=== PATIENT | female | born 1945 | race Caucasian/White ===

== ENCOUNTER → 2017-11-30 13:48 | Outpatient (CLI) | payer MEDICARE, SELFPAY ==
[2017-11-30 17:52] LABS: Anion Gap 10 (5-15); BUN 21 mg/dL (7-18); BUN/Creat Ratio 14.7 RATIO (10-20); Calcium,Total 8.8 mg/dL (8.5-10.1); Chloride 107 mmol/L (98-107); Creatinine, Serum 1.43 mg/dL (0.55-1.02); EST Glomerular Filtration Rate 39 mL/min (>60); Est Glom Filt Rate - Afr Amer 47 mL/min (>60); Glucose 141 mg/dL (74-106); Sodium Level 141 mmol/L (136-145)
== END ==
PROVIDERS: Family Provider Family Medicine; PCP Family Medicine; Visit Provider Family Medicine
DX: E11.9 Type 2 diabetes mellitus without complications (principal)
CPT/HCPCS: 36415; 80048

== ENCOUNTER → 2017-12-31 21:20 | Outpatient (CLI) | payer MEDICARE, SELFPAY | PROVIDERS: Family Provider Family Medicine; PCP Family Medicine; Visit Provider Urology | DX: R82.99 Other abnormal findings in urine (principal) | CPT/HCPCS: 87086; 87088 ==

== ENCOUNTER → 2018-03-18 10:21 | Outpatient (CLI) | payer MEDICARE, SELFPAY ==
--- NOTE | 2018-03-18 10:21 | DT_ITS ---
This patient was seen during an EMR downtime March 18, 2018 - March 25, 2018. This patient may have a combination of paper and electronic documentation or all paper documentation. All documentation is viewable within the e-chart portion of [facility] for each patient visit.
[2018-03-24 09:33] LABS: BUN 20 mg/dL (7-18); BUN/Creat Ratio 12.7 RATIO (10-20); Calcium,Total 8.1 mg/dL (8.5-10.1); Cholesterol 138 mg/dL (200); Creatinine, Serum 1.57 mg/dL (0.55-1.02); EST Glomerular Filtration Rate 35 mL/min (>60); Est Glom Filt Rate - Afr Amer 42 mL/min (>60); Glucose 161 mg/dL (74-106)
[2018-03-24 09:34] LABS: Anion Gap 12 (5-15); Chloride 107 mmol/L (98-107); Potassium 4.3 mmol/L (3.5-5.1); Sodium Level 141 mmol/L (136-145); Triglycerides 112 mg/dL; Very Low Density Lipoprotein 22 mg/dL (5-40)
[2018-03-24 09:35] LABS: High Density Lipoprotein 44 mg/dL
== END ==
PROVIDERS: Family Provider Family Medicine; PCP Family Medicine; Visit Provider Family Medicine
DX: E11.9 Type 2 diabetes mellitus without complications (principal); R35.0 Frequency of micturition
CPT/HCPCS: 36415; 80048; 80061

== ENCOUNTER → 2018-05-06 11:52 | Outpatient (CLI) | payer MEDICARE, SELFPAY ==
[2018-05-06 16:03] LABS: Anion Gap 9 (5-15); BUN 29 mg/dL (7-18); BUN/Creat Ratio 16.1 RATIO (10-20); Calcium,Total 8.8 mg/dL (8.5-10.1); Chloride 109 mmol/L (98-107); EST Glomerular Filtration Rate 30 mL/min (>60); Est Glom Filt Rate - Afr Amer 36 mL/min (>60); Glucose 226 mg/dL (74-106); Potassium 4.3 mmol/L (3.5-5.1); Sodium Level 143 mmol/L (136-145)
== END ==
PROVIDERS: Family Provider Family Medicine; PCP Family Medicine; Visit Provider Family Medicine
DX: I10 Essential (primary) hypertension (principal)
CPT/HCPCS: 36415; 80048

== ENCOUNTER → 2018-06-10 11:26 | Outpatient (CLI) | payer MEDICARE, SELFPAY ==
[2018-06-10 14:05] LABS: Anion Gap 12 (5-15); BUN 31 mg/dL (7-18); BUN/Creat Ratio 16.8 RATIO (10-20); Calcium,Total 8.7 mg/dL (8.5-10.1); Chloride 110 mmol/L (98-107); Creatinine, Serum 1.85 mg/dL (0.55-1.02); EST Glomerular Filtration Rate 29 mL/min (>60); Est Glom Filt Rate - Afr Amer 35 mL/min (>60); Glucose 190 mg/dL (74-106); Potassium 4.4 mmol/L (3.5-5.1); Sodium Level 142 mmol/L (136-145)
== END ==
PROVIDERS: Family Provider Family Medicine; PCP Family Medicine; Visit Provider Family Medicine
DX: N28.9 Disorder of kidney and ureter, unspecified (principal)
CPT/HCPCS: 36415; 80048

== ENCOUNTER → 2018-08-28 07:55 | Outpatient (CLI) | payer MEDICARE, SELFPAY ==
--- NOTE | 2018-08-28 08:00 | BI_ITS ---
MAMMOGRAPHY - BILATERAL SCREENING REASON FOR EXAM: Female, 73 years old. Routine annual screening examination. PERTINENT HISTORY: Personal history of breast cancer. Prior right mastectomy with TRAM flap reconstruction. TECHNIQUE: Digital bilateral breast abel (3D mammographic acquisition) in the CC and MLO projections. 2-D mediolateral oblique (MLO) and craniocaudad (CC) views of both breasts were obtained. CAD: Full Field Digital Mammography with Computer Added Detection was performed. COMPARISON: Comparison is made with prior examination dated August 02, 2017 and July 20, 2016. FINDINGS: Breast Composition: The left breast is heterogeneously dense, which may obscure small masses. The right breast is fatty in nature. There are no dominant masses or suspicious calcifications. No other significant abnormalities are identified. There has been no significant change since the prior study. BI/SCREENING MAMM (CAD), BILAT IMPRESSION: Stable bilateral screening mammogram. Yearly follow-up mammogram recommended. (A) ASSESSMENT CATEGORY: BIRADS Category 1: Negative. A letter regarding these results will be sent to the patient by the facility within 30 days. Approximately 10% of breast cancers are not detected by mammography. A normal mammogram should not delay biopsy of a clinically suspicious abnormality. [id number] Electronically Signed: Petey Santiago MD at 9:49 EST Tel [phone], Service support ,
== END ==
PROVIDERS: Family Provider Family Medicine; PCP Family Medicine; Visit Provider Family Medicine
DX: Z12.31 Encounter for screening mammogram for malignant neoplasm of breast (principal)
CPT/HCPCS: 77063; 77067

== ENCOUNTER → 2018-09-02 13:30 | Outpatient (CLI) | payer MEDICARE, SELFPAY | PROVIDERS: Family Provider Family Medicine; PCP Family Medicine; Referring Provider Nurse Practitioner Adult Health; Visit Provider Nurse Practitioner Adult Health | DX: R31.9 Hematuria, unspecified (principal) | CPT/HCPCS: 87077; 87086; 87088; 87186 ==

== ENCOUNTER → 2018-09-17 10:43 | Outpatient (CLI) | payer MEDICARE, SELFPAY ==
[2018-09-17 13:11] LABS: Anion Gap 11 (5-15); BUN 36 mg/dL (7-18); BUN/Creat Ratio 24.3 RATIO (10-20); Calcium,Total 8.9 mg/dL (8.5-10.1); Chloride 108 mmol/L (98-107); Cholesterol 148 mg/dL (200); Creatinine, Serum 1.48 mg/dL (0.55-1.02); EST Glomerular Filtration Rate 37 mL/min (>60); Est Glom Filt Rate - Afr Amer 45 mL/min (>60); Glucose 264 mg/dL (74-106); High Density Lipoprotein 49 mg/dL; Potassium 4.6 mmol/L (3.5-5.1); Sodium Level 140 mmol/L (136-145); Thyroid Stim Hormone (TSH) 1.59 uIU/mL (0.358-3.74); Triglycerides 101 mg/dL; Very Low Density Lipoprotein 20 mg/dL (5-40)
== END ==
PROVIDERS: Family Provider Family Medicine; PCP Family Medicine; Visit Provider Family Medicine
DX: E11.9 Type 2 diabetes mellitus without complications (principal)
CPT/HCPCS: 36415; 80048; 80061; 84443

== ENCOUNTER → 2018-10-03 16:26 | Outpatient (CLI) | payer MEDICARE, SELFPAY | PROVIDERS: Family Provider Family Medicine; PCP Family Medicine; Referring Provider Nurse Practitioner Adult Health; Visit Provider Nurse Practitioner Adult Health | DX: R30.0 Dysuria (principal); R82.998 Other abnormal findings in urine | CPT/HCPCS: 87077; 87086; 87088; 87186 ==

== ENCOUNTER → 2019-02-26 14:26 | Outpatient (CLI) | payer MEDICARE, SELFPAY ==
[2019-02-26 17:45] LABS: Anion Gap 9 (5-15); BUN 29 mg/dL (7-18); BUN/Creat Ratio 15.2 RATIO (10-20); Calcium,Total 8.1 mg/dL (8.5-10.1); Chloride 107 mmol/L (98-107); Creatinine, Serum 1.91 mg/dL (0.55-1.02); EST Glomerular Filtration Rate 28 mL/min (>60); Est Glom Filt Rate - Afr Amer 33 mL/min (>60); Glucose 304 mg/dL (74-106); Potassium 5.1 mmol/L (3.5-5.1); Sodium Level 140 mmol/L (136-145)
== END ==
PROVIDERS: Family Provider Family Medicine; PCP Family Medicine; Referring Provider Family Medicine; Visit Provider Family Medicine
DX: I10 Essential (primary) hypertension (principal)
CPT/HCPCS: 36415; 80048

== ENCOUNTER → 2019-04-29 10:02 | Outpatient (CLI) | payer MEDICARE, SELFPAY ==
--- NOTE | 2019-04-29 10:07 | RAD_ITS ---
STUDY: X-RAY CHEST REASON FOR EXAM: Female, 73 years old. Cough. TECHNIQUE: PA and lateral views of the chest. COMPARISON: None. FINDINGS: Hyperinflation. Focal irregular infiltrate in the right upper lobe. Radiographic follow-up is recommended. Findings suggestive of a left basilar scarring. Blunting of the right costophrenic angle. Normal size heart. Normal mediastinum and yaneth. Normal visualized pulmonary arteries. Normal visualized aortic arch and descending thoracic aorta. There are diffuse degenerative changes of the visualized thoracic spine. Normal visualized ribs, clavicles, and shoulders. There is no demonstrated abnormality of the visualized soft tissue structures of the upper abdomen. RAD/Chest PA and Lateral IMPRESSION: Focal right upper lobe infiltrate. Radiographic follow-up is recommended. Electronically Signed: Petey Santiago, at 14:45 EDT , Service support ,
[2019-04-29 10:51] LABS: Bacteria 0 SEEN /hpf (None Seen); Mucous, Urine 0 SEEN /hpf (<or=2+)
[2019-04-29 12:33] LABS: Erythrocyte Sedimentation Rate 62 mm/hr (0-30)
[2019-04-29 12:35] LABS: Absolute Lymphocyte Count 1.53 X10^3/uL (0.83-4.51); Absolute Neutrophil Count 8.8 X10^3/uL (2.0-7.7); Basophil% 0.9 % (0-1); Eosinophil# 0.23 X10^3/uL; Hematocrit 36.3 % (37-47); Hemoglobin 11.6 g/dL (12.0-15.0); Lymphocyte # 1.53 X10^3/ul (4.0); Lymphocyte % 13.3 % (19-41); Mean Corpuscular Hgb 27.8 pg (27.0-32.0); Mean Corpuscular Volume 87.1 fL (81-99); Mean Platelet Vol. 9.9 fl (6.2-12.0); Monocyte# 0.65 X10^3/uL; Monocyte% 5.6 % (0-10); NRBC Flagged by Analyzer 0 % (0-5); Neutrophil # 8.84 X10^3/uL (2.7-7.7); Neutrophil % 76.6 % (47-70); Platelet Count 403 K/mm3 (150-450); RBC Distribution Width CV 13.2 % (11.6-14.6); RBC Distribution Width SD 41.9 fl (35.1-43.9); Red Blood Count 4.17 M/mm3 (4.2-5.4); White Blood Count 11.5 K/mm3 (4.4-11.0)
[2019-04-29 12:46] LABS: Vitamin B12 346 pg/mL (211-911); Vitamin D,25 Hydroxy 31.8 ng/mL (29.95-100.01)
[2019-04-29 13:16] LABS: Color, Urine Yellow (Yellow); Glucose, Dipstick Normal (Normal); Ketone-Dipstick Negative (Negative); Leukocyte Esterase-Dipstick 25 /ul (Negative); Nitrite-Dipstick Negative (Negative); Occult Blood-Urine 50 /ul (Negative); Protein-Dipstick Negative (Negative); Urine Bilirubin Dipstick Negative (Negative); Urine Clarity Cloudy (Clear); Urine Urobilinogen Normal (Normal)
[2019-04-29 13:18] LABS: ALB/GLOB Ratio 0.6 RATIO (0.9-2.4); AST(SGOT) 26 U/L (15-37); Alanine Aminotransfer ALT/SGPT 19 U/L (13-56); Albumin, Serum 3.2 g/dL (3.2-5.0); Alkaline Phosphatase 82 U/L (45-117); Anion Gap 8 (5-15); BUN 31 mg/dL (7-18); BUN/Creat Ratio 14.9 RATIO (10-20); Calcium,Total 8.9 mg/dL (8.5-10.1); Chloride 107 mmol/L (98-107); Creatinine, Serum 2.08 mg/dL (0.55-1.02); EST Glomerular Filtration Rate 25 mL/min (>60); Est Glom Filt Rate - Afr Amer 30 mL/min (>60); Globulin 5.5 g/dL (2.2-4.2); Glucose 168 mg/dL (74-106); Iron 44 ug/dL (50-170); Potassium 4.5 mmol/L (3.5-5.1); Protein, Total 8.7 g/dL (6.4-8.2); Sodium Level 137 mmol/L (136-145); Thyroid Stim Hormone (TSH) 1.19 uIU/mL (0.358-3.74)
[2019-04-29 13:23] LABS: Red Blood Cells-Urine 0-5 SEEN /hpf (0-5); White Blood Cells 0-5 SEEN /hpf (0-5)
[2019-04-29 13:24] LABS: Squamous Epithelial Cells - UA 0-5 SEEN /hpf (5-10)
[2019-04-29 13:37] LABS: D-Dimer Quantitative (DVT/PE) 5.18 FEU/ug/m (0.27-0.49)
== END ==
PROVIDERS: Family Provider Family Medicine; PCP Family Medicine; Referring Provider Family Medicine; Visit Provider Family Medicine
DX: R05 Cough (principal); R31.9 Hematuria, unspecified; E03.9 Hypothyroidism, unspecified; E11.9 Type 2 diabetes mellitus without complications; R07.9 Chest pain, unspecified; R53.83 Other fatigue
CPT/HCPCS: 71046; 80053; 81001; 82306; 82607; 83540; 84443; 85025; 85379; 85652; 87086; 87088

== ENCOUNTER → 2019-04-29 14:47 | Outpatient (CLI) | payer MEDICARE, SELFPAY ==
--- NOTE | 2019-04-29 15:32 | NM_ITS ---
We are attempting to reach an attending provider to discuss findings. An addendum with communication details will be sent when the communication is complete. CLINICAL: 73-year-old female with reported history of shortness of breath. VENTILATION-PERFUSION LUNG SCINTIGRAPHY COMPARISON: Plain film chest radiograph 04/29/2019 FINDINGS: The patient was administered 50.0 mCi 99m Tc DTPA aerosol. The aerosol ventilation study demonstrates mildly nonuniform ventilation identified in the right and left lung art with corresponding radiographic changes defined in the right upper lung on review of plain film chest x-ray 04/29/2019. Central clumping of the aerosol is identified in the bilateral hemithorax. Following the intravenous administration of 5.8 mCi of 99m Tc MAA, the pulmonary perfusion study reveals absent perfusion in the distribution of the right upper lobe to include the apical, anterior and posterior segments clearly delineated on the anterior, posterior projections. Relatively normal perfusion is noted in the left lung. NM/Lung Scan Vent/Perf IMPRESSION: 1. HIGH PROBABILITY FOR PULMONARY EMBOLUS (> 80%) 99m Tc DTPA aerosol ventilation / 99m Tc MAA pulmonary perfusion imaging examination, according to PIOPED II interpretive criteria with regard given to the presence of a > 2 segmental equivalents ventilation-perfusion mismatch involving the right upper lung field-right upper lobe. (Sotsman et al, Radiology 246: 941, 2008 Sotsman et al, J Nucl Med 49: 1741, 2008). 2. Central clumping of aerosol may be secondary to obstructive airway mechanics and/or clinical tachypnea. Electronically Signed: Thomas Erazo DO at 16:49 EDT Tel , Service support ,
== END ==
PROVIDERS: Family Provider Family Medicine; PCP Family Medicine; Referring Provider Family Medicine; Visit Provider Family Medicine
DX: R06.00 Dyspnea, unspecified (principal); R05 Cough; R31.9 Hematuria, unspecified; E03.9 Hypothyroidism, unspecified; E11.9 Type 2 diabetes mellitus without complications; R07.9 Chest pain, unspecified; R53.83 Other fatigue
CPT/HCPCS: 71046; 78582; 80053; 81001; 82306; 82607; 83540; 84443; 85025; 85379; 85652; 87086; A9540; A9567

== ENCOUNTER → 2019-05-08 11:34 | Outpatient (CLI) | payer MEDICARE, SELFPAY ==
[2019-05-08 14:31] LABS: Anion Gap 11 (5-15); BUN 40 mg/dL (7-18); BUN/Creat Ratio 15.8 RATIO (10-20); Calcium,Total 8.8 mg/dL (8.5-10.1); Chloride 103 mmol/L (98-107); Creatinine, Serum 2.53 mg/dL (0.55-1.02); EST Glomerular Filtration Rate 20 mL/min (>60); Est Glom Filt Rate - Afr Amer 24 mL/min (>60); Glucose 232 mg/dL (74-106); Potassium 5.2 mmol/L (3.5-5.1); Sodium Level 139 mmol/L (136-145)
== END ==
PROVIDERS: Family Provider Family Medicine; PCP Family Medicine; Referring Provider Family Medicine; Visit Provider Family Medicine
DX: N28.9 Disorder of kidney and ureter, unspecified (principal)
CPT/HCPCS: 36415; 80048

== ENCOUNTER → 2019-05-13 12:47 | Outpatient (CLI) | payer MEDICARE, SELFPAY ==
--- NOTE | 2019-05-13 12:54 | ECHOD_ITS ---
Reason For Study: PULMONARY EMBOLISM Procedure This was a 2D Doppler, Color Flow transthoracic echocardiogram. Myocardial strain analysis was performed in this exam to aid in the assessment of cardiac function. The exam was of adequate technical quality. Exam performed in department. Left Ventricle Normal LV size. Mild concentric left ventricular hypertrophy. Left ventricular systolic function is normal. The estimated ejection fraction is 70 %. The global longitudinal strain = -19 % (normal). There is evidence of diastolic dysfunction. No regional wall motion abnormalities noted. Right Ventricle Normal RV size. Normal systolic function. Atria Normal left atrium. Normal right atrium. No doppler evidence for ASD. Mitral Valve There is mild to moderate mitral annular calcification. Extension of the mitral annular calcification onto the posterior mitral valve leaflet. Trivial mitral valve insufficiency. Tricuspid Valve Normal tricuspid valve. Mild tricuspid valve insufficiency. Right ventricular systolic pressure estimated to be 35 mmHg. Aortic Valve Trisinus/trileaflet aortic valve. Normal aortic valve. Pulmonic Valve The pulmonic valve is not well visualized. Great Vessels Normal sized aortic root. Pericardium/Pleural No pericardial effusion. MMode/2D Measurements & Calculations LVIDd: 3.5 cm IVSd: 1.3 cm Ao root diam: 3.1 cm LVIDs: 2.3 cm LVPWd: 1.3 cm RVDd: 3.0 cm FS: 35.9 % LAV(MOD-bp): 34.3 ml LVAd ap4: 23.2 cm2 SV(MOD-sp4): 43.5 ml LAV(MOD-bp) Indexed: 16.6 ml/m2 EDV(MOD-sp4): 64.7 ml LAV(MOD-sp2): 32.0 ml EDV(sp4-el): 65.3 ml LAV(MOD-sp4): 35.6 ml LVAs ap4: 12.6 cm2 ESV(MOD-sp4): 21.2 ml ESV(sp4-el): 22.2 ml EF(MOD-sp4): 67.3 % EF(sp4-el): 66.0 % SV(sp4-el): 43.1 ml LA A4 area: 13.6 cm2 LA dimension(2D): 3.6 cm RA A4 area: 11.0 cm2 Time Measurements MV dec time: 0.30 sec Doppler Measurements & Calculations MV E max jeanmarie: 83.3 cm/sec Lat Peak E' Jeanmarie: 5.1 cm/sec Med Peak E' Jeanmarie: 6.5 cm/sec MV A max jeanmarie: 106.6 cm/sec E/E' lat: 16.5 E/E' med: 12.9 MV E/A: 0.78 Ao V2 max: 145.1 cm/sec LV V1 max: 103.9 cm/sec PA V2 max: 118.5 cm/sec Ao max P.4 mmHg LV V1 max P.3 mmHg TR max jeanmarie: 283.4 cm/sec TR max P.1 mmHg Interpretation Summary Left ventricular systolic function is normal. The estimated ejection fraction is 70 %. The global longitudinal strain = -19 % (normal). Mild concentric left ventricular hypertrophy. There is mild to moderate mitral annular calcification. Extension of the mitral annular calcification onto the posterior mitral valve leaflet. Trivial mitral valve insufficiency. Mild tricuspid valve insufficiency. Right ventricular systolic pressure estimated to be 35 mmHg. There is evidence of diastolic dysfunction. Ordering Physician: Deshawn Vides Referring Physician: Deshawn Vides Performed By: Sintia Miller RDCS
== END ==
PROVIDERS: Family Provider Family Medicine; PCP Family Medicine; Referring Provider Family Medicine; Visit Provider Family Medicine
DX: I26.99 Other pulmonary embolism without acute cor pulmonale (principal)
CPT/HCPCS: 93306

== ENCOUNTER → 2019-05-27 13:10 | Outpatient (CLI) | payer MEDICARE, SELFPAY ==
[2019-05-27 15:42] LABS: Anion Gap 7 (5-15); BUN 27 mg/dL (7-18); Calcium,Total 8.8 mg/dL (8.5-10.1); Chloride 109 mmol/L (98-107); EST Glomerular Filtration Rate 36 mL/min (>60); Est Glom Filt Rate - Afr Amer 44 mL/min (>60); Glucose 175 mg/dL (74-106); Potassium 4.6 mmol/L (3.5-5.1); Sodium Level 139 mmol/L (136-145)
== END ==
PROVIDERS: Family Provider Family Medicine; PCP Family Medicine; Referring Provider Family Medicine; Visit Provider Family Medicine
DX: N28.9 Disorder of kidney and ureter, unspecified (principal)
CPT/HCPCS: 36415; 80048

== ENCOUNTER → 2019-06-02 10:45 | Outpatient (CLI) | payer MEDICARE, SELFPAY ==
[2019-06-02 12:31] LABS: Anion Gap 8 (5-15); BUN 26 mg/dL (7-18); BUN/Creat Ratio 16.2 RATIO (10-20); Calcium,Total 9.1 mg/dL (8.5-10.1); Chloride 110 mmol/L (98-107); EST Glomerular Filtration Rate 34 mL/min (>60); Est Glom Filt Rate - Afr Amer 41 mL/min (>60); Glucose 182 mg/dL (74-106); Potassium 4.5 mmol/L (3.5-5.1); Sodium Level 141 mmol/L (136-145)
== END ==
PROVIDERS: Family Provider Family Medicine; PCP Family Medicine; Referring Provider Family Medicine; Visit Provider Family Medicine
DX: N28.9 Disorder of kidney and ureter, unspecified (principal)
CPT/HCPCS: 36415; 80048

== ENCOUNTER → 2019-08-05 11:52 | Outpatient (CLI) | payer MEDICARE, SELFPAY ==
[2019-08-05 15:55] LABS: Anion Gap 7 (5-15); BUN 32 mg/dL (7-18); BUN/Creat Ratio 16.8 RATIO (10-20); Calcium,Total 8.5 mg/dL (8.5-10.1); Chloride 108 mmol/L (98-107); Creatinine, Serum 1.91 mg/dL (0.55-1.02); EST Glomerular Filtration Rate 27 mL/min (>60); Est Glom Filt Rate - Afr Amer 33 mL/min (>60); Glucose 227 mg/dL (74-106); Potassium 4.7 mmol/L (3.5-5.1); Sodium Level 139 mmol/L (136-145)
== END ==
PROVIDERS: Family Provider Family Medicine; PCP Family Medicine; Referring Provider Family Medicine; Visit Provider Family Medicine
DX: N28.9 Disorder of kidney and ureter, unspecified (principal)
CPT/HCPCS: 36415; 80048

== ENCOUNTER → 2019-09-08 12:18 | Outpatient (CLI) | payer MEDICARE, SELFPAY ==
--- NOTE | 2019-09-08 12:20 | BI_ITS ---
MAMMOGRAPHY - BILATERAL SCREENING 3-D TOMOSYNTHESIS REASON FOR EXAM: Female, 74 years old. Routine annual screening examination. PERTINENT HISTORY: Personal history of breast cancer status post right mastectomy with TRAM flap reconstruction. TECHNIQUE: 2-D mammograms and 3-D Tomosynthesis of the breast (s) were performed. CAD was performed. COMPARISON: August 28, 2018, August 02, 2017 FINDINGS: The breast composition is almost entirely fat. Stable TRAM flap reconstruction. Scattered benign calcifications are seen. No dense spiculated masses or suspicious microcalcifications are identified. No architectural distortion is identified. There is no skin thickening or retraction. There has been no significant change since the prior study. BI/SCREEN MAMM (CAD) W/SHARON BILAT IMPRESSION: No mammographic signs of malignancy. Routine yearly mammograms recommended. ASSESSMENT CATEGORY: BIRADS Category 2: Benign. A letter regarding these results will be sent to the patient by the facility within 30 days. FOLLOW UP RECOMMENDATION: Yearly follow up mammogram recommended. (A) Approximately 10% of breast cancers are not detected by mammography. A normal mammogram should not delay biopsy of a clinically suspicious abnormality. Electronically Signed: Devonte Crowe MD at 17:26 EST , Service support ,
== END ==
PROVIDERS: Family Provider Family Medicine; PCP Family Medicine; Referring Provider Family Medicine; Visit Provider Family Medicine
DX: Z12.31 Encounter for screening mammogram for malignant neoplasm of breast (principal); Z85.3 Personal history of malignant neoplasm of breast; Z90.11 Acquired absence of right breast and nipple
CPT/HCPCS: 77063; 77067

== ENCOUNTER → 2019-12-04 11:41 | Outpatient (CLI) | payer MEDICARE, SELFPAY ==
[2019-12-04 14:20] LABS: Anion Gap 7 (5-15); BUN 24 mg/dL (7-18); BUN/Creat Ratio 17.4 RATIO (10-20); Calcium,Total 8.7 mg/dL (8.5-10.1); Chloride 111 mmol/L (98-107); Creatinine, Serum 1.38 mg/dL (0.55-1.02); EST Glomerular Filtration Rate 40 mL/min (>60); Est Glom Filt Rate - Afr Amer 48 mL/min (>60); Glucose 193 mg/dL (74-106); Potassium 4.4 mmol/L (3.5-5.1); Sodium Level 142 mmol/L (136-145)
== END ==
PROVIDERS: PCP Family Medicine; Referring Provider Family Medicine; Visit Provider Family Medicine
DX: N28.9 Disorder of kidney and ureter, unspecified (principal)
CPT/HCPCS: 36415; 80048

== ENCOUNTER → 2020-04-29 15:10 | Outpatient (CLI) | payer MEDICARE, SELFPAY ==
[2020-04-29 18:19] LABS: ALB/GLOB Ratio 0.8 RATIO (0.9-2.4); AST(SGOT) 17 U/L (15-37); Alanine Aminotransfer ALT/SGPT 23 U/L (13-56); Albumin, Serum 3.7 g/dL (3.2-5.0); Alkaline Phosphatase 93 U/L (45-117); Anion Gap 8 (5-15); BUN 37 mg/dL (7-18); BUN/Creat Ratio 21.9 RATIO (10-20); Calcium,Total 9.3 mg/dL (8.5-10.1); Chloride 108 mmol/L (98-107); Cholesterol 148 mg/dL (200); Creatinine, Serum 1.69 mg/dL (0.55-1.02); EST Glomerular Filtration Rate 32 mL/min (>60); Est Glom Filt Rate - Afr Amer 38 mL/min (>60); Globulin 4.6 g/dL (2.2-4.2); Glucose 180 mg/dL (74-106); High Density Lipoprotein 46 mg/dL; Potassium 4.6 mmol/L (3.5-5.1); Protein, Total 8.3 g/dL (6.4-8.2); Sodium Level 138 mmol/L (136-145); Thyroid Stim Hormone (TSH) 0.49 uIU/mL (0.358-3.74); Triglycerides 98 mg/dL; Very Low Density Lipoprotein 20 mg/dL (5-40)
[2020-04-30 15:47] LABS: Microalbumin,Random Urine 8.6 mg/L (NO RANGE EST.)
== END ==
PROVIDERS: PCP Family Medicine; Referring Provider Family Medicine; Visit Provider Family Medicine
DX: E11.9 Type 2 diabetes mellitus without complications (principal); I10 Essential (primary) hypertension
CPT/HCPCS: 36415; 80053; 80061; 82043; 84443

== ENCOUNTER → 2020-11-09 10:22 | Outpatient (CLI) | payer MEDICARE, SELFPAY ==
[2020-11-09 12:30] LABS: Hemoglobin A1c 8.9 % (3.8-5.6)
[2020-11-09 12:34] LABS: ALB/GLOB Ratio 0.8 RATIO (0.9-2.4); AST(SGOT) 10 U/L (15-37); Alanine Aminotransfer ALT/SGPT 16 U/L (13-56); Albumin, Serum 3.3 g/dL (3.2-5.0); Alkaline Phosphatase 73 U/L (45-117); Anion Gap 8 (5-15); BUN 30 mg/dL (7-18); BUN/Creat Ratio 17.8 RATIO (10-20); Calcium,Total 8.1 mg/dL (8.5-10.1); Chloride 111 mmol/L (98-107); Cholesterol 125 mg/dL (200); Creatinine, Serum 1.69 mg/dL (0.55-1.02); EST Glomerular Filtration Rate 32 mL/min (>60); Est Glom Filt Rate - Afr Amer 38 mL/min (>60); Globulin 4.4 g/dL (2.2-4.2); Glucose 144 mg/dL (74-106); High Density Lipoprotein 46 mg/dL; Potassium 3.9 mmol/L (3.5-5.1); Protein, Total 7.7 g/dL (6.4-8.2); Sodium Level 141 mmol/L (136-145); Thyroid Stim Hormone (TSH) 0.96 uIU/mL (0.358-3.74); Triglycerides 78 mg/dL; Very Low Density Lipoprotein 16 mg/dL (5-40)
== END ==
PROVIDERS: PCP Family Medicine; Visit Provider Family Medicine
DX: E11.9 Type 2 diabetes mellitus without complications (principal); E03.9 Hypothyroidism, unspecified; E78.5 Hyperlipidemia, unspecified
CPT/HCPCS: 36415; 80053; 80061; 83036; 84443

== ENCOUNTER → 2020-12-27 | Outpatient (CLI) | payer MEDICARE, SELFPAY | END | disposition home or self-care (01) | LOC: LABSPEC 16:45 | PROVIDERS: PCP Family Medicine; Referring Provider Nurse Practitioner Adult Health; Visit Provider Nurse Practitioner Adult Health | DX: N30.21 Other chronic cystitis with hematuria (principal) | CPT/HCPCS: 87077; 87086; 87088; 87186 ==

== ENCOUNTER → 2021-01-20 11:53 | Outpatient (CLI) | payer MEDICARE, SELFPAY ==
--- NOTE | 2021-01-20 11:55 | BI_ITS ---
MAMMOGRAPHY - BILATERAL SCREENING REASON FOR EXAM: Female, 75 years old. Routine annual screening examination. PERTINENT HISTORY: P/H AGE 66 RT MASTECTOMY WITH TRAM FLAP 2001 LT EXC BX Y? TECHNIQUE: Digital bilateral breast sharon (3D mammographic acquisition) in the CC and MLO projections. 2-D mediolateral oblique (MLO) and craniocaudad (CC) views of both breasts were obtained. CAD: Full Field Digital Mammography with Computer Added Detection was performed. COMPARISON: 09/08/2019 and 08/28/2018 FINDINGS: Breast Composition: The breasts are heterogeneously dense, which may obscure small masses. There are no dominant masses or suspicious calcifications. No other significant abnormalities are identified. BI/SCRN MAMM (CAD)W/SHARON BILAT IMPRESSION: Stable bilateral screening mammogram. Yearly follow-up mammogram recommended. (A) ASSESSMENT CATEGORY: BIRADS Category 2: Benign. A letter regarding these results will be sent to the patient by the facility within 30 days. Approximately 10% of breast cancers are not detected by mammography. A normal mammogram should not delay biopsy of a clinically suspicious abnormality. [id number] Electronically Signed: Kyra Kaufman MD at 16:33 EDT Tel , Service support ,
--- NOTE | 2021-01-20 12:19 | BD_ITS ---
STUDY: DUAL ENERGY X-RAY ABSORPTIOMETRY / DXA REASON FOR EXAM: Female, 75 years old. Z780. Patient is postmenopausal. Loss of height. TECHNIQUE: Bone Mineral Density (BMD) measurements of lumbar spine and bilateral hips were obtained. COMPARISON: Comparison is made with prior study dated 08/02/2017. FINDINGS: Lumbar Spine (L1-L4): g/cm2 (1.196) / T-score (0.2) / Z-score (1.9) Findings are suggestive of normal bone density with a low fracture risk. Left Femur Total: g/cm2 (0.862) / T-score (-1.2) / Z-score (0.5) Left Femoral Neck: g/cm2 (0.849) / T-score (-1.4) / Z-score (0.5) Right Femur Total: g/cm2 (0.802) / T-score (-1.6) / Z-score (0.0) Right Femoral Neck: g/cm2 (0.800) / T-score (-1.7) / Z-score (0.1) The T-Scores on the most recent prior examination were: Lumbar Spine (L1-L4): There has been improvement of bone density since the previous examination. Left Femur Total: which represents a worsening of 7.6%. Right Femur Total: which represents a worsening of 7.2%. BD/Dexa Bone Density Study IMPRESSION: The patient is considered osteopenic as outlined below according to World [employer] Organization (WHO) criteria with a moderate fracture risk. There has been worsening of bone density since the previous examination. Reference Information: The T-score is the number of standard deviations above or below the standard which is normal for young adults at their peak bone mineral density. The World Health Organization (WHO) interprets the T-scores as follows: Above -1 Normal bone density Between -1 and -2.5 Osteopenia Equal to / or below -2.5 Osteoporosis As a practical clinical guideline, osteopenia may be graded as follows: Mild -1 through -1.5 Moderate -1.6 through -2.0 Severe -2.1 through -2.4 The Z-score is the number of standard deviations above or below age-matched controls. A Z-score of less than -1.5 would be considered abnormal. References: 1. NIH Osteoporosis and Related Bone Diseases www osteo.org 2. International Society for Clinical Densitometry www iscd.org 3. National Osteoporosis Foundation www nof.org Electronically Signed: Petey Santiago MD at 11:15 EDT , Service support ,
== END ==
PROVIDERS: PCP Family Medicine; Referring Provider Family Medicine; Visit Provider Family Medicine
DX: Z12.31 Encounter for screening mammogram for malignant neoplasm of breast (principal); Z78.0 Asymptomatic menopausal state; M85.80 Other specified disorders of bone density and structure, unspecified site
CPT/HCPCS: 77063; 77067; 77080

== ENCOUNTER → 2021-03-01 11:56 | Outpatient (CLI) | payer MEDICARE, SELFPAY ==
[2021-03-01 15:49] LABS: Vitamin D,25 Hydroxy 38.5 ng/mL
[2021-03-01 15:58] LABS: Anion Gap 7 (5-15); BUN 45 mg/dL (7-18); BUN/Creat Ratio 24.9 RATIO (10-20); Calcium,Total 8.7 mg/dL (8.5-10.1); Chloride 111 mmol/L (98-107); Creatinine, Serum 1.81 mg/dL (0.55-1.02); EST Glomerular Filtration Rate 29 mL/min (>60); Est Glom Filt Rate - Afr Amer 35 mL/min (>60); Glucose 141 mg/dL (74-106); Potassium 4.6 mmol/L (3.5-5.1); Sodium Level 139 mmol/L (136-145)
== END ==
PROVIDERS: PCP Family Medicine; Referring Provider Family Medicine; Visit Provider Family Medicine
DX: M85.80 Other specified disorders of bone density and structure, unspecified site (principal)
CPT/HCPCS: 36415; 80048; 82306

== ENCOUNTER → 2021-04-12 11:08 | Outpatient (CLI) | payer MEDICARE, SELFPAY | PROVIDERS: PCP Family Medicine; Referring Provider Urology; Visit Provider Urology | DX: R30.0 Dysuria (principal) | CPT/HCPCS: 87086; 87088; 87186 ==

== ENCOUNTER → 2021-05-09 12:38 | Outpatient (CLI) | payer MEDICARE, SELFPAY ==
--- NOTE | 2021-05-09 12:45 | RAD_ITS ---
STUDY: X-RAY - PELVIS AND LEFT HIP REASON FOR EXAM: Female, 75 years old. PAIN TECHNIQUE: 3 views of the pelvis and hip. COMPARISON: None. FINDINGS: There is a non-specific bowel gas pattern. Normal visualized soft tissue structures. Normal bilateral iliac wings, sacroiliac joints and visualized sacrum. Normal bilateral superior and inferior pubic rami. Normal pubic symphysis. Normal bilateral ischial tuberosities. Normal visualized femoral head. Normal acetabulum. Normal hip joint. RAD/HIP, UNI W/ Pelvis 2-3 Views IMPRESSION: Normal x-ray examination of the pelvis and hip. Electronically Signed: Thomas Serna MD at 17:04 EDT Tel , Service support ,
--- NOTE | 2021-05-09 12:45 | RAD_ITS ---
STUDY: X-RAY - LUMBOSACRAL SPINE REASON FOR EXAM: Female, 75 years old. PAIN TECHNIQUE: 6 view(s) of the lumbosacral spine were obtained. COMPARISON: 05/16/2013 FINDINGS: Normal lumbar lordosis. Mild dextroscoliosis centered at L2/L3. 2 mm of anterolisthesis of L4 on L5 which is unchanged on the flexion and extension views. There is multilevel endplate spondylosis of the lumbar vertebrae. There is multi-level degenerative disc disease with multi-level disc space narrowing. Normal bilateral sacral ala, sacroiliac joints, and visualized sacrum. Normal visualized soft tissue structures. RAD/L/S Spine w Bend Min 6 Vw IMPRESSION: Mild dextroscoliosis with diffuse degenerative disc disease with 2 mm of anterolisthesis of L4 on L5 which is unchanged on the flexion and extension views. Electronically Signed: Thomas Serna MD at 7:41 EDT Tel , Service support ,
== END ==
PROVIDERS: PCP Family Medicine; Referring Provider Family Medicine; Visit Provider Family Medicine
DX: M54.9 Dorsalgia, unspecified (principal); M25.552 Pain in left hip
CPT/HCPCS: 72114; 73502

== ENCOUNTER → 2021-08-22 14:12 | Outpatient (CLI) | payer MEDICARE, SELFPAY ==
[2021-08-22 15:59] LABS: Vitamin D,25 Hydroxy 37.4 ng/mL
[2021-08-22 16:08] LABS: Anion Gap 6 (5-15); BUN 45 mg/dL (7-18); BUN/Creat Ratio 28.3 RATIO (10-20); Calcium,Total 8.8 mg/dL (8.5-10.1); Chloride 108 mmol/L (98-107); Cholesterol 145 mg/dL (200); Creatinine, Serum 1.59 mg/dL (0.55-1.02); EST Glomerular Filtration Rate 34 mL/min (>60); Est Glom Filt Rate - Afr Amer 41 mL/min (>60); Glucose 163 mg/dL (74-106); High Density Lipoprotein 49 mg/dL; Potassium 4.5 mmol/L (3.5-5.1); Sodium Level 138 mmol/L (136-145); Thyroid Stim Hormone (TSH) 0.21 uIU/mL (0.358-3.74); Triglycerides 67 mg/dL; Very Low Density Lipoprotein 13 mg/dL (5-40)
== END ==
PROVIDERS: PCP Family Medicine; Visit Provider Family Medicine
DX: E11.65 Type 2 diabetes mellitus with hyperglycemia (principal); N18.30 Chronic kidney disease, stage 3 unspecified; E03.9 Hypothyroidism, unspecified; M85.80 Other specified disorders of bone density and structure, unspecified site
CPT/HCPCS: 36415; 80048; 80061; 82306; 84443

== ENCOUNTER 2021-12-07 15:36 | Outpatient (CLI) | payer MEDICARE, SELFPAY ==
[2021-12-07 18:16] LABS: Anion Gap 5 (5-15); BUN 39 mg/dL (7-18); BUN/Creat Ratio 25.2 RATIO (10-20); Calcium,Total 8.9 mg/dL (8.5-10.1); Chloride 112 mmol/L (98-107); Creatinine, Serum 1.55 mg/dL (0.55-1.02); EST Glomerular Filtration Rate 35 mL/min (>60); Est Glom Filt Rate - Afr Amer 42 mL/min (>60); Glucose 183 mg/dL (74-106); Potassium 4.7 mmol/L (3.5-5.1); Sodium Level 141 mmol/L (136-145); Thyroid Stim Hormone (TSH) 0.64 uIU/mL (0.358-3.74)
== END 2021-12-07 23:59 | disposition home or self-care (01) ==
PROVIDERS: PCP Family Medicine; Referring Provider Family Medicine; Visit Provider Family Medicine
DX: N18.30 Chronic kidney disease, stage 3 unspecified (principal); E03.9 Hypothyroidism, unspecified
CPT/HCPCS: 36415; 80048; 84443

== ENCOUNTER → 2022-02-20 | Outpatient (CLI) | payer MEDICARE, SELFPAY ==
--- NOTE | 2022-02-20 12:39 | BI_ITS ---
MAMMOGRAPHY - BILATERAL SCREENING REASON FOR EXAM: Female, 76 years old. Routine annual screening examination. PERTINENT HISTORY: Personal history of breast cancer. Prior right mastectomy with TRAM flap reconstruction. Remote left excisional breast biopsy. TECHNIQUE: Digital bilateral breast sharon (3D mammographic acquisition) in the CC and MLO projections. 2-D mediolateral oblique (MLO) and craniocaudad (CC) views of both breasts were obtained. CAD: Full Field Digital Mammography with Computer Added Detection was performed. COMPARISON: Comparison is made with prior study dated 01/20/2021 and 09/08/2019. FINDINGS: Breast Composition: The left breast is heterogeneously dense, which may obscure small masses. There are no dominant masses or suspicious calcifications. No other significant abnormalities are identified. There has been no significant change since the prior study. BI/SCRN MAMM (CAD)W/SHARON BILAT IMPRESSION: Stable bilateral screening mammogram. Yearly follow-up mammogram recommended. (A) ASSESSMENT CATEGORY: BIRADS Category 2: Benign. A letter regarding these results will be sent to the patient by the facility within 30 days. Approximately 10% of breast cancers are not detected by mammography. A normal mammogram should not delay biopsy of a clinically suspicious abnormality. [id number] Electronically Signed: Petey Santiago MD at 14:02 EDT ,
== END | disposition home or self-care (01) ==
LOC: OPBI 12:36
PROVIDERS: PCP Family Medicine; Visit Provider Family Medicine
DX: Z12.31 Encounter for screening mammogram for malignant neoplasm of breast (principal)
CPT/HCPCS: 77063; 77067

== ENCOUNTER → 2022-05-18 | Outpatient (CLI) | payer MEDICARE, SELFPAY ==
--- NOTE | 2022-05-18 14:45 | LES_PTH ---
PATIENT: OTTONIEL FERNANDEZ LOC: [facility] U#:[id number] AGE/SX: 76/F ROOM: RE05/18/[address]: Dr. Wilder Nascimento MD : 1945 BED: DIS: 05/18/2022 SPEC #: [id number] RECD: 05/18/22 17:01 STATUS: ERENDIRA EL #: [id number] SHAHLA: 05/18/22 14:[address]: Wilder Nascimento DEPT: SURGICAL PATHOLOGY RECD BY: Mayte Isabel ENTERED: 05/19/22 08:18 SP TYPE: Lesion OTHR DR: Dr. Salo Vides MD Tissues: Oral cavity, NOS Procedures: Surgery Specimen Level IV HEADER OPERATION: Pigmented oral mucosal lesion PRE-OP DIAGNOSIS: Pigmented oral mucosal lesion TISSUE SUBMITTED: Pigmented oral mucosal lesion MICROSCOPIC DIAGNOSIS Lesion of oral mucosa, biopsy: Squamous mucosa with underlying fibrous tissue containing extraneous black pigmentation. See comment. AM:beata 05/22/2022 COMMENT A melanotic neoplasm is not identified. Clinical correlation is suggested. Case has been reviewed in consultation with Dr. Segura who concurs with the above diagnosis. IDC:SJ MICROSCOPIC DESCRIPTION Slides are reviewed. GROSS DESCRIPTION Received is one container labeled with the patient's name and not further designated. The specimen consists of an irregular fragment of turpin tissue measuring 0.2 x 0.1 x <0.1 cm. The specimen is totally submitted in one cassette. / AM:beata 05/19/2022 TC:5 CPT: 96657
== END | disposition home or self-care (01) ==
PROVIDERS: PCP Family Medicine; Visit Provider Otolaryngology
DX: K13.70 Unspecified lesions of oral mucosa (principal)
CPT/HCPCS: 88305

== ENCOUNTER → 2022-08-21 | Outpatient (CLI) | payer MEDICARE, SELFPAY ==
[2022-08-21 16:00] LABS: ALB/GLOB Ratio 0.7 RATIO (0.9-2.4); AST(SGOT) 12 U/L (15-37); Alanine Aminotransfer ALT/SGPT 13 U/L (13-56); Albumin, Serum 3.4 g/dL (3.2-5.0); Alkaline Phosphatase 91 U/L (45-117); Anion Gap 8 (5-15); BUN 34 mg/dL (7-18); BUN/Creat Ratio 22.7 RATIO (10-20); Calcium,Total 8.5 mg/dL (8.5-10.1); Chloride 107 mmol/L (98-107); EST Glomerular Filtration Rate 36 mL/min (>60); Est Glom Filt Rate - Afr Amer 44 mL/min (>60); Globulin 4.7 g/dL (2.2-4.2); Glucose 165 mg/dL (74-106); Potassium 4.5 mmol/L (3.5-5.1); Protein, Total 8.1 g/dL (6.4-8.2); Sodium Level 138 mmol/L (136-145); Thyroid Stim Hormone (TSH) 0.93 uIU/mL (0.358-3.74)
== END | disposition home or self-care (01) ==
LOC: MFPLAB 12:22
PROVIDERS: PCP Family Medicine; Referring Provider Family Medicine; Visit Provider Family Medicine
DX: N18.30 Chronic kidney disease, stage 3 unspecified (principal); E03.9 Hypothyroidism, unspecified
CPT/HCPCS: 36415; 80053; 84443

== ENCOUNTER → 2023-02-14 | Outpatient (CLI) | payer MEDICARE, SELFPAY ==
[2023-02-14 15:56] LABS: Vitamin D,25 Hydroxy 49.9 ng/mL
[2023-02-14 16:14] LABS: ALB/GLOB Ratio 0.6 RATIO (0.9-2.4); AST(SGOT) 17 U/L (15-37); Alanine Aminotransfer ALT/SGPT 18 U/L (13-56); Albumin, Serum 3.1 g/dL (3.2-5.0); Alkaline Phosphatase 76 U/L (45-117); Anion Gap 9 (5-15); BUN 32 mg/dL (7-18); BUN/Creat Ratio 21.5 RATIO (10-20); Calcium,Total 9.1 mg/dL (8.5-10.1); Chloride 107 mmol/L (98-107); Cholesterol 182 mg/dL (200); Creatinine, Serum 1.49 mg/dL (0.55-1.02); EST Glomerular Filtration Rate 36 mL/min (>60); Est Glom Filt Rate - Afr Amer 44 mL/min (>60); Globulin 4.9 g/dL (2.2-4.2); Glucose 190 mg/dL (74-106); High Density Lipoprotein 45 mg/dL; Potassium 4.4 mmol/L (3.5-5.1); Sodium Level 138 mmol/L (136-145); Triglycerides 101 mg/dL; Very Low Density Lipoprotein 20 mg/dL (5-40)
== END | disposition home or self-care (01) ==
LOC: MFPLAB 11:28
PROVIDERS: PCP Family Medicine; Visit Provider Family Medicine
DX: M85.80 Other specified disorders of bone density and structure, unspecified site (principal); E11.9 Type 2 diabetes mellitus without complications; E03.9 Hypothyroidism, unspecified
CPT/HCPCS: 36415; 80053; 80061; 82306; 84443

== ENCOUNTER → 2023-02-26 | Outpatient (CLI) | payer MEDICARE, SELFPAY ==
--- NOTE | 2023-02-26 13:17 | BI_ITS ---
MAMMOGRAPHY - BILATERAL SCREENING REASON FOR EXAM: Female, 77 years old. Routine annual screening examination. PERTINENT HISTORY: Personal history of breast cancer. Prior right mastectomy and TRAM flap reconstructive surgery. Remote left breast biopsy. TECHNIQUE: Digital bilateral breast sharon (3D mammographic acquisition) in the CC and MLO projections. 2-D mediolateral oblique (MLO) and craniocaudad (CC) views of both breasts were obtained. CAD: Full Field Digital Mammography with Computer Added Detection was performed. COMPARISON: Comparison is made with prior study February 20, 2022 and January 20, 2021. FINDINGS: Breast Composition: The left breast heterogeneously dense, which may obscure small masses. The right breast is fatty in nature. There are no dominant masses or suspicious calcifications. No other significant abnormalities are identified. There has been no significant change since the prior study. BI/SCRN MAMM (CAD)W/SHARON BILAT IMPRESSION: Stable bilateral screening mammogram. Yearly follow-up mammogram recommended. (A) ASSESSMENT CATEGORY: BIRADS Category 2: Benign. A letter regarding these results will be sent to the patient by the facility within 30 days. Approximately 10% of breast cancers are not detected by mammography. A normal mammogram should not delay biopsy of a clinically suspicious abnormality. [id number] Electronically Signed: Petey Santiago MD at 14:40 EDT ,
== END | disposition home or self-care (01) ==
LOC: OPBI 13:15
PROVIDERS: PCP Family Medicine; Referring Provider Family Medicine; Visit Provider Family Medicine
DX: Z12.31 Encounter for screening mammogram for malignant neoplasm of breast (principal); Z85.3 Personal history of malignant neoplasm of breast; Z90.11 Acquired absence of right breast and nipple
CPT/HCPCS: 77063; 77067

== ENCOUNTER 2023-03-21 13:24 | Inpatient (IN) | payer MEDICARE, SELFPAY ==
[2023-03-21] VITALS (9 sets, daily range): BP systolic 81–193; BP diastolic 60–105; PULSE 72–96; RESP 18–30; TEMP 35.7–36.7; O2SAT 88–98; BMI 31.8; BMI 31.9
--- NOTE | 2023-03-21 13:28 | EKG12_ITS ---
Test Reason : SOB Blood Pressure : / mmHG Vent. Rate : 091 BPM Atrial Rate : 000 BPM P-R Int : 000 ms QRS Dur : 068 ms QT Int : 354 ms P-R-T Axes : 000 066 043 degrees QTc Int : 435 ms AV dissociation Nonspecific ST abnormality Abnormal ECG Confirmed by CARO BRUNO, RAY ([id number]), copy editor ROBLES BELL ([id number]) on 03/23/2023 8:06:21 AM Referred By: Confirmed By:RAY ELIZONDO MD
[2023-03-21] MEDS: 0.9% Normal Saline 1,000 ML 999 ML IV (13:47)
[2023-03-21 13:59] LABS: Absolute Lymphocyte Count 1.73 X10^3/uL (0.83-4.51); Absolute Neutrophil Count 17.8 X10^3/uL (2.0-7.7); Basophil# 0.16 X10^3/uL; Basophil% 0.8 % (0-1); Eosinophil# 0.07 X10^3/uL; Eosinophils% 0.3 % (0-5); Hematocrit 44.2 % (37-47); Lymphocyte # 1.73 X10^3/ul (0.83-4.51); Lymphocyte % 8.1 % (19-41); Mean Corp Hgb Conc 31.7 g/dL (32-36); Mean Corpuscular Hgb 27.6 pg (27.0-32.0); Mean Platelet Vol. 10.4 fl (6.2-12.0); Monocyte# 1.21 X10^3/uL; Monocyte% 5.7 % (0-10); NRBC Flagged by Analyzer 0 % (0-5); Neutrophil % 83.5 % (47-70); Platelet Count 294 K/mm3 (150-450); RBC Distribution Width SD 48.2 fl (35.1-43.9); Red Blood Count 5.08 M/mm3 (4.2-5.4); White Blood Count 21.3 K/mm3 (4.4-11.0)
--- NOTE | 2023-03-21 14:00 | RAD_ITS ---
STUDY: X-RAY CHEST REASON FOR EXAM: Female, 77 years old. Chest pain TECHNIQUE: Single AP portable view of the chest. COMPARISON: Comparison is made with prior study dated April 29, 2019. FINDINGS: EKG electrodes are seen. Hyperinflation. No acute abnormality is seen. There is no demonstrated pleural abnormality. Normal size heart. Normal mediastinum and yaneth. Normal visualized pulmonary arteries. Normal visualized aortic arch and descending thoracic aorta. There are diffuse degenerative changes of the visualized thoracic spine. Normal visualized ribs, clavicles, and shoulders. There is no demonstrated abnormality of the visualized soft tissue structures of the upper abdomen. RAD/Chest 1 View (Portable) IMPRESSION: Normal x-ray examination of the chest. Electronically Signed: Petey Santiago MD at 14:14 EDT ,
--- NOTE | 2023-03-21 14:08 | EDS_ITS ---
HPI History of Present Illness Chief Complaint: Shortness of Breath Informant: patient and spouse/S.O. Onset/Context/Timing Onset: Days Context: gradual Timing: Continuous Quality: Positive for Dyspnea on exertion Current Severity: Moderate Maximum Severity: Moderate Worsened by: Exertion and Coughing Relieved by: Oxygen Associated Symptoms cough; Negative for ear pain, fever, sore throat, clear sputum, white sputum, yellow sputum or green sputum Chest Pain: Positive for None Narrative Narrative: 77-year-old female history of prior PE and DVT, renal insufficiency and diabetes. Currently she is on no blood thinners. States that she has been short of breath last several days with a chronic cough that is nonproductive. She denies any chest pain or hemoptysis. No leg pain or swelling. Denies any fever or chills. Today she is much more short of breath and she has been she got concerned that she may have a recurrent PE in 1 to be evaluated. She denies any recent travel, surgery or immobilization. PE Risk Factors: Positive for Prior DVT or PE; Negative for Cancer, OCP + Smoking + > 35, Recent immobilization or Recent surgery Prior similar symptoms: Yes Recent Illness/Hospitalization: No PFSH PFSH Medical History Breast cancer Diabetes DVT (deep venous thrombosis) Pulmonary embolism Thyroid cancer Home Medications ascorbic acid (vitamin C) 500 mg tablet 500 mg PO DAILY SUPPLEMENT 03/21/23 [History Last Taken 03/20/23] atorvastatin 40 mg tablet 40 mg PO DAILY CHOLESTEROL 03/21/23 [History Last Taken 03/20/23] cholecalciferol (vitamin D3) 25 mcg (1,000 unit) tablet 25 mcg PO DAILY SUPPLEMENT 03/21/23 [History Last Taken 03/20/23] dulaglutide 3 mg/0.5 mL subcutaneous pen injector (Trulicity) 3 mg subcut TU DM 03/21/23 [History Last Taken 03/13/23] glimepiride 4 mg tablet 4 mg PO DAILY DM 03/21/23 [History Last Taken 03/20/23] levothyroxine 125 mcg tablet (Synthroid) 125 mcg PO MOTUWETHFRSA THYROID 03/21/23 [History Last Taken 03/20/23] levothyroxine 125 mcg tablet (Synthroid) 250 mcg PO RICHEY THYROID 03/21/23 [History Last Taken 03/18/23] losartan 100 mg tablet 100 mg PO DAILY BP 03/21/23 [History Last Taken 03/20/23] methenamine hippurate 1 gram tablet 1 g PO DAILY 03/21/23 [History Last Taken 03/20/23] Allergy/AdvReac Type Severity Reaction Status Date / Time No Known Allergies Allergy Verified 03/21/23 13:42 Family History Father Heart disease Surgical History H/O mastectomy H/O thyroidectomy Social History household members: spouse Smoking Status: Never smoker ROS ROS ED Review of Systems ROS Unobtainable: Denies due to encephalopathy Constitutional Constitutional ED: Denies chills or fever(s) Eyes Eyes: Denies blurry vision ENT ENT ED: Denies ear pain Cardiovascular Cardiovascular: Denies chest pain Respiratory/Chest Respiratory/Chest: Reports cough, dyspnea and dyspnea on exertion Gastrointestinal Gastrointestinal: Denies abdominal pain Genitourinary Genitourinary ED: Denies dysuria Musculoskeletal Musculoskeletal: Denies arthralgias Integumentary Denies abscess Neurologic Neurologic: Denies headache(s) Psychiatric Psychiatric: Denies anxiety Hematologic/Lymphatic Hematologic/Lymphatic: Denies easy bleeding Allergic/Immunologic Allergic/Immunologic ED: Denies mouth swelling EXAM Physical Exam Narrative Exam Narrative: 77-year-old female with complaint of shortness of breath. Pulse ox is 88% on room air consistent with hypoxia. On 4 L she is in the mid 90s. Initial blood pressure 81/60 repeated 163/89. She does not look septic or toxic. H EENT exam unremarkable. Neck nontender no JVD. Lungs clear to auscultation bilaterally. Heart regular rhythm rate about 90 no murmur. Chest wall nontender. Abdomen soft nontender. Moving all 4 extremities. Calves are nontender without edema or cords. Neurologically she is awake and alert with no focal motor deficits. Answering questions and following commands. Const Vital Signs: 03/21/23 13:26 03/21/23 13:36 03/21/23 13:38 Temperature 96.2 F L 96.2 F L Temperature Source Temporal Oral Pulse Rate 94 90 Respiratory Rate 30 H 27 H Respiratory Effort Respiratory Depth Respiratory Pattern Blood Pressure 81/60 L Blood Pressure Mean 67 Pulse Ox 88 96 98 Oxygen Delivery Method Room Air Nasal Cannula Nasal Cannula Oxygen Flow Rate (L/min) 4 4 03/21/23 13:38 03/21/23 13:45 03/21/23 14:46 Temperature Temperature Source Pulse Rate 87 72 Respiratory Rate 26 H 22 H Respiratory Effort Short of Breath Labored Respiratory Depth Deep Respiratory Pattern Irregular Blood Pressure 163/89 H 193/82 H Blood Pressure Mean 113 119 Pulse Ox 98 96 Oxygen Delivery Method Nasal Cannula Nasal Cannula Nasal Cannula Oxygen Flow Rate (L/min) 4 3 Positive well nourished and well developed; Negative for cachectic, contractures or unkempt General Appearance ED: well developed and NAD; Negative for unkempt, cachectic, contractures or pallor Nutritional Appearance: Negative for cachectic HEENT Reports moist mucous membranes atraumatic; Negative for trauma or tenderness Eyes PERRL and EOMs intact bilaterally General Eye ED: Negative for pale conjunctiva or scleral icterus Neck no lymphadenopathy, supple, no meningeal signs and no JVD General: Negative for tenderness Lymph Lymphatic: Negative for other Chest Wall Chest: Negative for other Resp normal respiratory effort and clear to auscultation bilaterally Effort and Inspection: Negative for pain with movement Auscultation: Negative for rales, rhonchi or wheezes Cardio regular rate, regular rhythm, S1 normal heart sound, S2 normal heart sound and no murmurs Rate: Negative for bradycardia or tachycardic Rhythm: Negative for abnormal rhythm GI non-tender, non-distended and no masses Inspection: Negative for other Auscultation: normoactive bowel sounds Palpation: soft; Negative for tender, guarding, hepatomegaly, splenomegaly, mass or rebound tenderness present Back/Spine no CVA tenderness and normal to inspection General Back: Negative for CVA tenderness or tenderness Extremity normal to inspection General Extremety ED: Negative for edema or tenderness General Extremity: Negative for edema Neuro oriented x3 Sensorium / Orientation: alert, oriented to person, oriented to place and oriented to time; Negative for orientation impaired or confused Speech: speech normal Motor Exam: strength 5/5 throughout Psych mental status grossly normal Appearance: Negative for unkempt Attitude: No agitated Mood & Affect: Negative for depressed, anxious or tearful Thought Process: normal thought process Skin no wounds and skin turgor normal General Skin Exam: Negative for jaundice or pallor Lesions: no lesions Trauma: Negative for abrasion MDM MDM MDM Narrative Medical decision making narrative: 77-year-old female with dyspnea and hypoxia with a history of prior PE. Initial chest x-ray shows no pneumonia, fluids or collapsed lung. I am ordering a CTA. She undergo a cardiac work-up plus CTA for evaluation of possible pulmonary emboli. Repeat exam patient is blood pressure significant improved a liter normal saline she is currently 193/82. Her hypoxia improved from 88% to 96% on 3 L. We discussed her test results. She does have bilateral pulmonary emboli. Due to her hypoxia and transient hypotension she will be admitted to the hospital. I spoke to the hospitalist, Dr. Bradford, patient be started on Lovenox and admitted to the PCU. Patient is aware of the plan and is comfortable with that. History & Record Review Discussion w/independent historian: Patient and Family Lab Data Attestation: I reviewed the patient's lab results. Lab results narrative: CBC shows no elevated white count of 21.3. H&H of 14 and 44. Platelets of 294. Chemistries show sodium 132 potassium 5.6 gap is 7 BUN and creatinine of 37.93 patient has a history of renal insufficiency with his creatinine is worse. Glucose of 396 she is a known diabetic. Troponin elevated to 290. Most likely secondary to the pulmonary emboli. Lactic acid is elevated 4.7. D-dimer elevated at 3.33 Labs: Laboratory Results - last 24 hr 03/21/23 03/21/23 03/21/23 13:40 13:40 13:40 WBC 21.3 H RBC 5.08 Hgb 14.0 Hct 44.2 MCV 87.0 MCH 27.6 MCHC 31.7 L RDW Std Deviation 48.2 H RDW Coeff of Yemi 15.0 H Plt Count 294 MPV 10.4 Immature Gran % (Auto) 1.600 H Neut % (Auto) 83.5 H Lymph % (Auto) 8.1 L [place] % (Auto) 5.7 Eos % (Auto) 0.3 Baso % (Auto) 0.8 Absolute Neuts (auto) 17.8 H Absolute Lymphs (auto) 1.73 Nucleated RBC % 0 D-Dimer Quant (PE/DVT) Cancelled Sodium 132 L Potassium 5.6 H Chloride 108 H Carbon Dioxide 17.0 L Anion Gap 7 BUN 37 H Creatinine 1.93 H Estim Creat Clear Calc 24.49 Est GFR (MDRD) Af Amer 33 L Est GFR (MDRD) Non-Af 27 L BUN/Creatinine Ratio 19.2 Glucose 396 H Lactic Acid Calcium 8.7 Troponin I High Sens 290 H* 03/21/23 03/21/23 13:40 14:26 WBC RBC Hgb Hct MCV MCH MCHC RDW Std Deviation RDW Coeff of Yemi Plt Count MPV Immature Gran % (Auto) Neut % (Auto) Lymph % (Auto) [place] % (Auto) Eos % (Auto) Baso % (Auto) Absolute Neuts (auto) Absolute Lymphs (auto) Nucleated RBC % D-Dimer Quant (PE/DVT) 3.33 H* Sodium Potassium Chloride Carbon Dioxide Anion Gap BUN Creatinine Estim Creat Clear Calc Est GFR (MDRD) Af Amer Est GFR (MDRD) Non-Af BUN/Creatinine Ratio Glucose Lactic Acid 4.7 H* Calcium Troponin I High Sens Radiography Chest X-Ray - ED: Read by ED Physician, Normal, Heart, Lungs, Mediastinum, Bony Structures, No Acute Disease and Chronic Changes Diagnostic Testing: Clinical Impression(s) from Imaging Studies Chest X-Ray 03/21/23 14:00 IMPRESSION: Normal x-ray examination of the chest. Electronically Signed: Petey Santiago MD at 14:14 EDT , Chest CTA 03/21/23 14:42 IMPRESSION: Bilateral pulmonary emboli as described. Pleural-based nodules are seen in the right lung as well as in the left lower lobe. Follow-up is recommended. Electronically Signed: Petey Santiago MD at 15:04 EDT , Chest x-ray, portable, single view interpreted by myself shows no acute abnormality. Normal cardiac silhouette. Normal mediastinum. No infiltrates. No effusions nor failure. Rhythm Strip Rhythm Strip: Junctional Rate: 91 EKG Initial EKG: Attestation: I personally reviewed and interpreted this EKG as follows: Interpretation: No Acute Injury Pattern and Junctional Comments: Junctional rhythm rate of 91 no acute signs of OH or ischemia. 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
[2023-03-21 14:24] LABS: Anion Gap 7 (5-15); BUN 37 mg/dL (7-18); BUN/Creat Ratio 19.2 RATIO (10-20); Calcium,Total 8.7 mg/dL (8.5-10.1); Chloride 108 mmol/L (98-107); Creatinine, Serum 1.93 mg/dL (0.55-1.02); EST Glomerular Filtration Rate 27 mL/min (>60); Est Glom Filt Rate - Afr Amer 33 mL/min (>60); Estimated Creatinine Clearance 24.49 ml/min; Glucose 396 mg/dL (74-106); Potassium 5.6 mmol/L (3.5-5.1); Sodium Level 132 mmol/L (136-145); Troponin-I HS 290 pg/mL (3.0-54.0)
[2023-03-21 14:26] LABS: Lactic Acid 4.7 mmol/L (0.4-1.9)
--- NOTE | 2023-03-21 14:42 | CT_ITS ---
STUDY: CTA CHEST REASON FOR EXAM: Female, 77 years old. Hypoxia and dyspneic w/ prior PE hx RADIATION DOSAGE (If Supplied By Facility): CTDIvol = ( 12.01 ) mGy, DLP = ( 346.50 ) mGycm TECHNIQUE: The examination was performed with the intravenous administration of IV 75mL Isovue-370. Post-processing of the angiographic images was performed, with multiplanar reformation and 3D reconstruction. Individualized dose optimization techniques were used for this CT. COMPARISON: Comparison is made with prior study done earlier in the day. FINDINGS: Intraluminal filling defects are seen in the distal aspect of the left pulmonary artery extending into branches of the left upper and left lower lobe pulmonary arteries. This also evidence of a intraluminal filling defect seen in the interlobar artery on the right side with emboli seen in branches of the right lower lobe pulmonary artery. There is atherosclerotic calcification of the aortic arch with tortuosity. There is no demonstrated aortic dissection. There are calcifications of the coronary arteries. Normal mediastinum. Normal hilar regions. Normal visualized trachea and bronchi. The lungs are well expanded. There is a 2.1 cm x 2.1 c nodule in the superior medial aspect of the right lower lobe as seen on axial image #170. There is also evidence of heterogeneous pleural based nodule in the lateral aspect of the right lower lobe as seen on axial image #129. This measures 1.6 x 1.5 cm. Several smaller pleural-based nodules are also seen in the right lower lobe. The larger measures 3.4 cm x 1.1 cm. There is also evidence of a pleural-based nodule in the left lower lobe on axial image 76 measuring 1.7 cm. Mild degree of scarring at both lung bases as well as in the posterior lateral aspect of the right upper lobe. Small right pleural effusion. Normal chest wall structures. There are degenerative changes of thoracic spine. There is a 2.3 cm x 2.1 cm nodule in the right adrenal gland containing fat and soft tissues suggests of possible adrenal myolipoma. CT/CTA Chest W/WO Contrast IMPRESSION: Bilateral pulmonary emboli as described. Pleural-based nodules are seen in the right lung as well as in the left lower lobe. Follow-up is recommended. Electronically Signed: Petey Santiago MD at 15:04 EDT ,
[2023-03-21 15:12] LABS: D-Dimer Quantitative (DVT/PE) 3.33 FEU/ug/m (0.27-0.49)
[2023-03-21] MEDS: Enoxaparin 100 MG/ML Syringe 90 MG SC (15:27)
--- NOTE | 2023-03-21 15:28 | PCM.HP.STD ---
HPI - General General Date of Admission: 03/21/23 Date of Service: 03/21/23 Chief Complaint: Shortness of breath for few days HPI Narrative OTTONIEL FERNANDEZ, is a 77 F with history of DVT and PE many years ago came to ED for shortness of breath that is started over the weekend. Patient stated on past Sunday she was feeling dyspnea on exertion and moving furniture's and house chores. This got progressively worse that today she felt tired and dyspnea even while brushing. She denies any acute chest pain, pressure or tightness, fever, leg swelling or chest congestion. Patient states for last 4 months she has intermittent episodes of cough which is dry, and sometimes he will feel right posterior lateral chest pain on coughing. 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 She has a history of breast cancer and had right mastectomy and was chemotherapy about 18 years ago when she had left leg DVT. After that report 6-7 years ago she had pulmonary embolism Mandeep was on Eliquis at that time. She also has history of thyroid cancer and had thyroidectomy long time ago about 12 years ago In ED, twelve-lead EKG shows accelerated junctional rhythm 91 bpm, QTc 435 ms. Vitals in ED shows patient is hypoxic 88% on room air required 3 to 4 L of oxygen. She was also dyspnea at rest, tachypneic respiratory rate 27 to 30/min and BP was low 81/60 which improved to 163/89. tPA was done which shows bilateral pulmonary embolism discussed in detail in assessment and plan. Patient also has CKD which is being managed by his PCP. [facility] Medical History Breast cancer Diabetes DVT (deep venous thrombosis) Pulmonary embolism Thyroid cancer Home Medications ascorbic acid (vitamin C) 500 mg tablet 500 mg PO DAILY SUPPLEMENT 03/21/23 [History Last Taken 03/20/23] atorvastatin 40 mg tablet 40 mg PO DAILY CHOLESTEROL 03/21/23 [History Last Taken 03/20/23] cholecalciferol (vitamin D3) 25 mcg (1,000 unit) tablet 25 mcg PO DAILY SUPPLEMENT 03/21/23 [History Last Taken 03/20/23] dulaglutide 3 mg/0.5 mL subcutaneous pen injector (Trulicity) 3 mg subcut TU DM 03/21/23 [History Last Taken 03/13/23] glimepiride 4 mg tablet 4 mg PO DAILY DM 03/21/23 [History Last Taken 03/20/23] levothyroxine 125 mcg tablet (Synthroid) 125 mcg PO MOTUWETHFRSA THYROID 03/21/23 [History Last Taken 03/20/23] levothyroxine 125 mcg tablet (Synthroid) 250 mcg PO RICHEY THYROID 03/21/23 [History Last Taken 03/18/23] losartan 100 mg tablet 100 mg PO DAILY BP 03/21/23 [History Last Taken 03/20/23] methenamine hippurate 1 gram tablet 1 g PO DAILY 03/21/23 [History Last Taken 03/20/23] Allergy/AdvReac Type Severity Reaction Status Date / Time No Known Allergies Allergy Verified 03/21/23 13:42 Family History Father Heart disease Surgical History H/O mastectomy H/O thyroidectomy Social History household members: spouse Smoking Status: Never smoker ROS ROS Narrative Constitutional: Reports fatigue and weakness for last 4 days. No fever. HEENT: Reports systems reviewed and no addt'l complaints, except as documented Respiratory/Chest: Respiratory described in HPI CVS: Denies CHF or coronary artery disease. Gastrointestinal: Denies coffee ground emesis, hematemesis or vomiting Genitourinary: Denies burning urination or new urinary tract symptoms. Has chronic urinary incontinence and increased frequency. Musculoskeletal: Denies acute joint pain or limited range of motion. No acute injury Neurologic: Denies seizure-like symptoms. No syncope. No strokelike symptoms. skin: No ulcer. No rash Endocrinology: Reports systems reviewed and no addt'l complaints, except as documented Hematologic/Lymphatic: Reports systems reviewed and no addt'l complaints, except as documented Rest 14 ROS are negative except as mentioned in HPI Vital Signs Vital Signs Vital Signs: 03/21/23 13:26 03/21/23 13:36 03/21/23 13:38 Temperature 96.2 F L 96.2 F L Temperature Source Temporal Oral Pulse Rate 94 90 Respiratory Rate 30 H 27 H Respiratory Effort Respiratory Depth Respiratory Pattern Blood Pressure 81/60 L Blood Pressure Mean 67 Pulse Ox 88 96 98 Oxygen Delivery Method Room Air Nasal Cannula Nasal Cannula Oxygen Flow Rate (L/min) 4 4 03/21/23 13:38 03/21/23 13:45 03/21/23 14:46 Temperature Temperature Source Pulse Rate 87 72 Respiratory Rate 26 H 22 H Respiratory Effort Short of Breath Labored Respiratory Depth Deep Respiratory Pattern Irregular Blood Pressure 163/89 H 193/82 H Blood Pressure Mean 113 119 Pulse Ox 98 96 Oxygen Delivery Method Nasal Cannula Nasal Cannula Nasal Cannula Oxygen Flow Rate (L/min) 4 3 Weight Weight: 203 lb Body Mass Index (BMI) 31.8 Physical Exam Narrative General: Alert, Oriented x3, Cooperative HEENT: Atraumatic, PERRLA, EOMI, Normocephalic Oral: Oral mucosa moist. No Gingival or Mucosal Lesions/ Ulcerations Neck: Supple, No JVD, Negative Carotid Bruits Lungs: Air entry diminished in bilateral lung bases. No crepitation/rhonchi Cardiovascular: Junctional rhythm, Normal S1, Normal S2, No murmurs Abdomen: Bowel Sounds Present, Soft, Non Tender, Non-Distended : No renal angle tenderness. No suprapubic tenderness. Extremities: Mild 1+ edema, Capillary Refill Less than 3 Seconds Skin: No rashes, No breakdown Musculoskeletal: Lateral degenerative arthritis in knees. Mild ROM restriction. No Tenderness to Palpation of Joints or Extremities Neurological: Cranial nerves II-XII grossly intact, DTR 2+/4 and Symmetrical, Neuro grossly intact. Muscle strength 5/5 at major joints. Psych/Mental Status: Normal Affect, Appropriate. Results Lab / Micro Data Result Diagrams: 03/21/23 13:40 03/21/23 13:40 Labs: Laboratory Results - last 24 hr 03/21/23 13:40: WBC 21.3 H, RBC 5.08, Hgb 14.0, Hct 44.2, MCV 87.0, MCH 27.6, MCHC 31.7 L, RDW Std Deviation 48.2 H, RDW Coeff of Yemi 15.0 H, Plt Count 294, MPV 10.4, Immature Gran % (Auto) 1.600 H, Neut % (Auto) 83.5 H, Lymph % (Auto) 8.1 L, [place] % (Auto) 5.7, Eos % (Auto) 0.3, Baso % (Auto) 0.8, Absolute Neuts (auto) 17.8 H, Absolute Lymphs (auto) 1.73, Nucleated RBC % 0 03/21/23 13:40: D-Dimer Quant (PE/DVT) Cancelled 03/21/23 13:40: Sodium 132 L, Potassium 5.6 H, Chloride 108 H, Carbon Dioxide 17.0 L, Anion Gap 7, BUN 37 H, Creatinine 1.93 H, Estim Creat Clear Calc 24.49, Est GFR (MDRD) Af Amer 33 L, Est GFR (MDRD) Non-Af 27 L, BUN/Creatinine Ratio 19.2, Glucose 396 H, Calcium 8.7, Troponin I High Sens 290 H* 03/21/23 13:40: Lactic Acid 4.7 H* 03/21/23 14:26: D-Dimer Quant (PE/DVT) 3.33 H* Rhythm Strip Rhythm Strip: Junctional Rate: 91 Radiology Impression Chest X-Ray 03/21/23 14:00 IMPRESSION: Normal x-ray examination of the chest. Electronically Signed: Petey Santiago MD at 14:14 EDT , Chest CTA 03/21/23 14:42 IMPRESSION: Bilateral pulmonary emboli as described. Pleural-based nodules are seen in the right lung as well as in the left lower lobe. Follow-up is recommended. Electronically Signed: Petey Santiago MD at 15:04 EDT , Assessment & Plan Assessment/Plan (1) Bilateral pulmonary embolism: PLAN: Plan This is a 27-year-old female being admitted for subacute worsening of shortness of breath, dyspnea at rest due to bilateral PE. 1. Bilateral pulmonary embolism, distal aspect of left pulmonary artery extending to branches of left upper and left lower pulmonary arteries, interlobar arteries on right side and right lower lobar artery with transient hypotension and hypoxemia: Patient is being admitted in PCU. Started on Lovenox 1 mg/kg body weight once daily adjusted due to decreased kidney function. 2D echo ordered. The patient has elevated D-dimer, lactic acid 4.7, BNP and elevated troponin suggestive of right-sided heart strain with hypoxemia. Currently patient blood pressure is elevated. Cycle cardiac enzymes 2. Chronic HFpEF: Patient had last echo in April 2019 reported EF 70%, mild concentric LVH, mild to moderate mitral valvular calcification, trivial MR mild TR, RVSP 25 Hg. Patient does not have features of acute heart failure. 3. History of recurrent PE: Patient will need lifelong anticoagulant as this is the third time she has DVT/PE. 4. TRAVIS on CKD stage IIIb probably due to diabetic nephropathy: Patient baseline creatinine about 1.5 last February 14, 2023. Today creatinine 1.93. On IV fluid normal saline. Patient is states she had kidney function checked about a month ago by PCP. 5. Diabetes mellitus type 2: Accu-Chek before every meal and cover with Humalog sliding scale. Glucose is high 396 in BMP. 6. CA breast status post right mastectomy status postchemotherapy long time ago. Patient also has thyroid cancer status post thyroidectomy: Patient on new medicine for both but gets yearly mammogram by Dr. [place]. DVT prophylaxis: As mentioned above Living will/advanced directive/end of life care: Patient does not have living will or advanced directive. After discussion of benefits/risks procedures involved with full code, DNR CC arrest and DNR CC, the patient opted for full code. Patient does want artificial life support including intubation, tube feed, ventilator and/chest compression, central venous catheter, vasopressor and DC shock if needed Total time spent in [id number] encounter in discussion of advanced directive 17 minutes. Laboratory Results 03/21/23 13:40: WBC 21.3 H, RBC 5.08, Hgb 14.0, Hct 44.2, MCV 87.0, MCH 27.6, MCHC 31.7 L, RDW Std Deviation 48.2 H, RDW Coeff of Yemi 15.0 H, Plt Count 294, MPV 10.4, Immature Gran % (Auto) 1.600 H, Neut % (Auto) 83.5 H, Lymph % (Auto) 8.1 L, [place] % (Auto) 5.7, Eos % (Auto) 0.3, Baso % (Auto) 0.8, Absolute Neuts (auto) 17.8 H, Absolute Lymphs (auto) 1.73, Nucleated RBC % 0 03/21/23 13:40: D-Dimer Quant (PE/DVT) Cancelled 03/21/23 13:40: Sodium 132 L, Potassium 5.6 H, Chloride 108 H, Carbon Dioxide 17.0 L, Anion Gap 7, BUN 37 H, Creatinine 1.93 H, Estim Creat Clear Calc 24.49, Est GFR (MDRD) Af Amer 33 L, Est GFR (MDRD) Non-Af 27 L, BUN/Creatinine Ratio 19.2, Glucose 396 H, Calcium 8.7, Troponin I High Sens 290 H* 03/21/23 13:40: Lactic Acid 4.7 H* 03/21/23 14:26: D-Dimer Quant (PE/DVT) 3.33 H* 03/21/23 14:26: PT 15.1 H, INR 1.2 03/21/23 14:26: B-Natriuretic Peptide 529.6 H 03/21/23 16:30: Troponin I High Sens Pending 03/21/23 16:47: POC Glucose 320 H Clinical Impression(s) from Imaging Studies Chest X-Ray 03/21/23 14:00 IMPRESSION: Normal x-ray examination of the chest. Electronically Signed: Petey Santiago MD at 14:14 EDT , Chest CTA 03/21/23 14:42 IMPRESSION: Bilateral pulmonary emboli as described. Pleural-based nodules are seen in the right lung as well as in the left lower lobe. Follow-up is recommended. Electronically Signed: Petey Santiago MD at 15:04 EDT , Charges/Coding Visit Charges Inpatient E&M: 58991 Init Hosp L3 Procedures Hospitalists Procedures: 03691 Advncd Care Plan 30 Min
[2023-03-21 15:42] LABS: International Normalized Ratio 1.2; Prothrombin Time (Protime)PT. 15.1 SECONDS (11.7-14.9)
[2023-03-21 16:06] LABS: BNP,B-Type NATRIURETIC PEPTIDE 529.6 pg/mL (0-100)
[2023-03-21] MEDS: Insulin Lispro 100 UNIT/ML INSULN.PEN SC ×2 (16:47→21:44)
[2023-03-21] MEDS: Insulin Glargine-YFGN 100 UNIT/ML Pen 15 UNIT SC (16:48)
[2023-03-21] MEDS: 0.9% Normal Saline 1,000 ML 100 ML IV (16:52)
[2023-03-21 17:12] LABS: Bedside Glucose 320 mg/dL (74-106)
[2023-03-21 17:49] LABS: Reflex Lactate? Y
[2023-03-21 18:10] LABS: Troponin-I HS 322 pg/mL (3.0-54.0)
[2023-03-21 19:20] LABS: Lactic Acid 3.1 mmol/L (0.4-1.9)
[2023-03-21 21:31] LABS: Troponin-I HS 297 pg/mL (3.0-54.0)
[2023-03-21] MEDS: BENZOCAINE/MENTHOL 1 LOZENGE MUCOUS MEM (21:41)
[2023-03-21] MEDS: Atorvastatin Calcium 40 MG Tablet PO (21:41)
[2023-03-21 23:45] LABS: Bedside Glucose 285 mg/dL (74-106)
[2023-03-22] VITALS (7 sets, daily range): BP systolic 127–146; BP diastolic 83–93; PULSE 89–90; RESP 17–18; TEMP 36.4–36.7; O2SAT 91–100
[2023-03-22] MEDS: 0.9% Normal Saline 1,000 ML 100 ML IV (01:35)
--- NOTE | 2023-03-22 05:55 | ECHOD_ITS ---
Reason For Study: EMBOLI Procedure This was a 2D Doppler, Color Flow transthoracic echocardiogram. Technically difficult study due to patient breathing and postion. Patient scanned semi erect position. Definity deferred due to pulmonary pressures. Exam performed portable in patient room. Left Ventricle Normal LV size. Left ventricular systolic function is normal. The estimated ejection fraction is 55 %. Stage 1 diastolic dysfunction. No regional wall motion abnormalities noted. Right Ventricle Mildly dilated right ventricle. Mild global right ventricular systolic dysfunction. Atria Normal left atrium. Normal right atrium. Mitral Valve Normal mitral valve. Tricuspid Valve Normal tricuspid valve. Moderate (2+) tricuspid valve insufficiency. Pulmonary artery systolic pressure is 73 mmHg. Moderate pulmonary hypertension. Aortic Valve Trisinus/trileaflet aortic valve. Pulmonic Valve Normal pulmonic valve. Great Vessels Normal aortic root. The pulmonary artery is normal size. Normal inferior vena cava. Pericardium/Pleural No pericardial effusion. MMode/2D Measurements & Calculations LVIDd: 3.4 cm IVSd: 1.1 cm LAV(MOD-bp): 66.0 ml LVIDs: 1.9 cm LVPWd: 1.1 cm LAV(MOD-bp) Indexed: 32.4 ml/m2 FS: 43.7 % LAV(MOD-sp2): 58.5 ml LAV(MOD-sp4): 65.3 ml SV(MOD-sp4): 29.0 ml SV(sp4-el): 30.9 ml LVAd ap4: 17.6 cm2 LVLd ap4: 7.0 cm EDV(MOD-sp4): 35.3 ml EDV(sp4-el): 37.5 ml LVAs ap4: 6.7 cm2 LVLs ap4: 5.8 cm ESV(MOD-sp4): 6.3 ml ESV(sp4-el): 6.6 ml EF(MOD-sp4): 82.2 % EF(sp4-el): 82.5 % LA A4 area: 23.0 cm2 LA dimension(2D): 3.6 cm RA A4 area: 22.2 cm2 Time Measurements MV dec time: 0.16 sec Doppler Measurements & Calculations MV E max jeanmarie: 78.2 cm/sec Lat Peak E' Jeanmarie: 5.5 cm/sec Med Peak E' Jeanmarie: 6.0 cm/sec MV A max jeanmarie: 127.7 cm/sec E/E' lat: 14.2 E/E' med: 13.0 MV E/A: 0.61 MV V2 max: 112.4 cm/sec MV dec slope: 502.8 cm/sec2 Ao V2 max: 122.4 cm/sec MV max P.1 mmHg Ao max P.0 mmHg MV V2 mean: 72.9 cm/sec Ao V2 mean: 86.4 cm/sec MV mean P.4 mmHg Ao mean P.4 mmHg MV V2 VTI: 23.3 cm Ao V2 VTI: 21.6 cm AV (velocity ratio): 0.64 LV V1 max: 110.9 cm/sec PA V2 max: 88.9 cm/sec TR max jeanmarie: 416.2 cm/sec LV V1 max P.0 mmHg PA V2 mean: 60.0 cm/sec TR max P.3 mmHg LV V1 mean P.2 mmHg LV V1 mean: 67.0 cm/sec LV V1 VTI: 13.8 cm ECHO/Echo Complete Interpretation Summary Normal LV size. Left ventricular systolic function is normal. The estimated ejection fraction is 55 %. Stage 1 diastolic dysfunction. Pulmonary artery systolic pressure is 73 mmHg. Moderate pulmonary hypertension. Ordering Physician: Brian Bradford Referring Physician: Salo Vides MD Performed By: Ann Varma RCS
[2023-03-22 06:13] LABS: Absolute Lymphocyte Count 2.85 X10^3/uL (0.83-4.51); Absolute Neutrophil Count 12.2 X10^3/uL (2.0-7.7); Basophil# 0.12 X10^3/uL; Basophil% 0.7 % (0-1); Eosinophil# 0.24 X10^3/uL; Eosinophils% 1.4 % (0-5); Hematocrit 41.6 % (37-47); Hemoglobin 13.1 g/dL (12.0-15.0); Lymphocyte # 2.85 X10^3/ul (0.83-4.51); Mean Corp Hgb Conc 31.5 g/dL (32-36); Mean Corpuscular Hgb 27.5 pg (27.0-32.0); Mean Corpuscular Volume 87.2 fL (81-99); Mean Platelet Vol. 10.6 fl (6.2-12.0); Monocyte# 1.18 X10^3/uL; NRBC Flagged by Analyzer 0 % (0-5); Neutrophil # 12.17 X10^3/uL (2.7-7.7); Neutrophil % 72.6 % (47-70); Platelet Count 236 K/mm3 (150-450); RBC Distribution Width CV 15.1 % (11.6-14.6); RBC Distribution Width SD 48.3 fl (35.1-43.9); Red Blood Count 4.77 M/mm3 (4.2-5.4); White Blood Count 16.8 K/mm3 (4.4-11.0)
[2023-03-22] MEDS: Levothyroxine 125 MCG Tablet PO (06:18)
[2023-03-22 06:44] LABS: Bedside Glucose 143 mg/dL (74-106)
[2023-03-22 07:02] LABS: Anion Gap 4 (5-15); BUN 33 mg/dL (7-18); BUN/Creat Ratio 24.6 RATIO (10-20); Calcium,Total 8.5 mg/dL (8.5-10.1); Chloride 116 mmol/L (98-107); Creatinine, Serum 1.34 mg/dL (0.55-1.02); EST Glomerular Filtration Rate 41 mL/min (>60); Est Glom Filt Rate - Afr Amer 50 mL/min (>60); Estimated Creatinine Clearance 35.28 ml/min; Glucose 133 mg/dL (74-106); Potassium 4.3 mmol/L (3.5-5.1); Sodium Level 141 mmol/L (136-145); Thyroid Stim Hormone (TSH) 1.64 uIU/mL (0.358-3.74)
[2023-03-22] MEDS: Insulin Glargine-YFGN 100 UNIT/ML Pen 15 UNIT SC (10:12)
[2023-03-22] MEDS: APIXABAN 5 MG TABLET 10 MG PO ×2 (10:14→21:38)
[2023-03-22] MEDS: Methenamine Hippurate 1 GM Tablet PO (10:15)
[2023-03-22] MEDS: Cholecalciferol (VIT D3) 25 MCG TABLET (1,000 UNITS) PO (10:15)
[2023-03-22] MEDS: Insulin Lispro 100 UNIT/ML INSULN.PEN SC ×3 (10:16→21:47)
[2023-03-22] MEDS: 0.9% Saline Lock 10 ML Syringe IV (10:16)
[2023-03-22 10:56] LABS: Bedside Glucose 265 mg/dL (74-106)
--- NOTE | 2023-03-22 12:05 | PCM.PN.HOSP ---
Subjective Subjective Doing well, no issues overnight. Some improvement in her shortness of breath, she does have a history of PEs she had 1 back in 2019 Objective Data Objective Data Vital Signs: Vital Signs Temp Pulse Resp BP Pulse Ox O2 Del Method O2 Flow Rate 97.8 F 89 17 127/83 H 91 Nasal Cannula 0.5 03/22/23 03:50 03/22/23 03:50 03/22/23 03:50 03/22/23 03:50 03/22/23 06:52 03/22/23 06:52 03/22/23 06:52 Oxygen Flow Rate (L/min) 0.5 Oxygen Delivery Method Nasal Cannula Weight: 204 lb Body Mass Index (BMI) 31.9 Intake & Output: Intake and Output for Last 24 Hours 03/21/23 03/22/23 03/23/23 03:59 03:59 03:59 Intake Total 1871.67 / 1871.67 1000 / 1000 Output Total 50 / 50 350 / 350 Balance 1821.67 / 1821.67 650 / 650 Lab / Micro Data Result Diagrams: 03/22/23 05:10 03/22/23 05:10 Labs: Laboratory Results - last 24 hr 03/21/23 13:40: WBC 21.3 H, RBC 5.08, Hgb 14.0, Hct 44.2, MCV 87.0, MCH 27.6, MCHC 31.7 L, RDW Std Deviation 48.2 H, RDW Coeff of Yemi 15.0 H, Plt Count 294, MPV 10.4, Immature Gran % (Auto) 1.600 H, Neut % (Auto) 83.5 H, Lymph % (Auto) 8.1 L, Ripley % (Auto) 5.7, Eos % (Auto) 0.3, Baso % (Auto) 0.8, Absolute Neuts (auto) 17.8 H, Absolute Lymphs (auto) 1.73, Nucleated RBC % 0 03/21/23 13:40: D-Dimer Quant (PE/DVT) Cancelled 03/21/23 13:40: Sodium 132 L, Potassium 5.6 H, Chloride 108 H, Carbon Dioxide 17.0 L, Anion Gap 7, BUN 37 H, Creatinine 1.93 H, Estim Creat Clear Calc 24.49, Est GFR (MDRD) Af Amer 33 L, Est GFR (MDRD) Non-Af 27 L, BUN/Creatinine Ratio 19.2, Glucose 396 H, Calcium 8.7, Troponin I High Sens 290 H* 03/21/23 13:40: Lactic Acid 4.7 H* 03/21/23 14:26: D-Dimer Quant (PE/DVT) 3.33 H* 03/21/23 14:26: PT 15.1 H, INR 1.2 03/21/23 14:26: B-Natriuretic Peptide 529.6 H 03/21/23 16:30: Troponin I High Sens 322 H* 03/21/23 16:47: POC Glucose 320 H 03/21/23 18:20: Lactic Acid 3.1 H* 03/21/23 20:12: Troponin I High Sens 297 H* 03/21/23 21:43: POC Glucose 285 H 03/22/23 05:10: WBC 16.8 H, RBC 4.77, Hgb 13.1, Hct 41.6, MCV 87.2, MCH 27.5, MCHC 31.5 L, RDW Std Deviation 48.3 H, RDW Coeff of Yemi 15.1 H, Plt Count 236, MPV 10.6, Immature Gran % (Auto) 1.300 H, Neut % (Auto) 72.6 H, Lymph % (Auto) 17.0 L, Ripley % (Auto) 7.0, Eos % (Auto) 1.4, Baso % (Auto) 0.7, Absolute Neuts (auto) 12.2 H, Absolute Lymphs (auto) 2.85, Nucleated RBC % 0 03/22/23 05:10: Sodium 141, Potassium 4.3, Chloride 116 H, Carbon Dioxide 21.0, Anion Gap 4 L, BUN 33 H, Creatinine 1.34 H, Estim Creat Clear Calc 35.28, Est GFR (MDRD) Af Amer 50 L, Est GFR (MDRD) Non-Af 41 L, BUN/Creatinine Ratio 24.6 H, Glucose 133 H, Calcium 8.5, TSH 1.64 03/22/23 06:19: POC Glucose 143 H 03/22/23 10:10: POC Glucose 265 H Radiography Diagnostic Testing: Radiology Impression Chest X-Ray 03/21/23 14:00 IMPRESSION: Normal x-ray examination of the chest. Electronically Signed: Petey Santiago MD at 14:14 EDT , Chest CTA 03/21/23 14:42 IMPRESSION: Bilateral pulmonary emboli as described. Pleural-based nodules are seen in the right lung as well as in the left lower lobe. Follow-up is recommended. Electronically Signed: Petey Santaigo MD at 15:04 EDT , Rhythm Strip Rhythm Strip: Junctional Rate: 91 Physical Exam Narrative General: Alert, Oriented x3, Cooperative, mild to moderate respiratory distress distress HEENT: Atraumatic, PERRLA, EOMI, Normocephalic Oral: Moist Mucosa Neck: Supple, No JVD Lungs: Diminished, Normal air movement, No rhonchi, No wheeze, No rales, tachypneic, retractions Cardiovascular: Regular rate, Regular Rhythm, Normal S1, Normal S2, No murmurs Abdomen: Soft, Non Tender, Non-Distended, No Hepato-splenomegaly Extremities: No edema, Capillary Refill Less than 3 Seconds Skin: No rashes, No breakdown Musculoskeletal: No Tenderness to Palpation of Joints or Extremities Neurological: Cranial nerves II-XII grossly intact, Motor Exam 5/5 strength throughout, Sensory exam intact to light touch and pain Psych/Mental Status: Normal Affect, Appropriate Assessment & Plan Assessment/Plan (1) Bilateral pulmonary embolism: PLAN: Plan 1. 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 She does have elevated troponins but she is not tachycardic ? Echo is pending ? We will transition to p.o. Eliquis ? We will remain on 2 L nasal cannula given her mild to moderate respiratory distress ? Does appear that she has had a previous PE and was on anticoagulation given repeat PE she will need to be on anticoagulation permanently ? No TRAVIS on admission 2. Chronic diastolic CHF/HTN/HLD ? Blood pressures are stable ? Continue with Lipitor ? Given the setting of of PE will hold the losartan 3. DM2 ? We will hold oral medications ? Continue with insulin ? Accu-Cheks ACHS ? We will make adjustments as necessary 4. Breast cancer status post right mastectomy and chemotherapy/thyroid cancer status post thyroidectomy with hypothyroidism ? Continue with Synthroid ? Continue to follow-up with outpatient oncology DVT: Eliquis Charges/Coding Visit Charges Inpatient E&M: 80993 Subs Hosp L2
--- NOTE | 2023-03-22 12:06 | CASEMGMT ---
RN?CM?LASER ENGRAVER?CM?to room to meet with patient for initial transition planning/care coordination?assessment.?RN?CM?introduced self and role at [facility].? Pt voices understanding and consents to?assessment?at this time.? Pt resting in bed in no distress at this time.? Pt is A/O at this time and answers all questions appropriately.?? Care providers, pharmacy, and demographics verified/updated at this time. PCP: Dr Vides Specialists: None Preferred Pharmacy: [facility] Insurance: Servando MORENO Prescription Benefit:?Yes. Pt to d/c home on Eliquis, which pt states she has been on in the past, but she is not sure if she has used the 30-day savings card. Pt provided w/card and instructed on use. Pt verbalizes understanding. Living Will/HPOA:?Has LW and HCPOA, who is her , Nadeem LNOK: , Nadeem. Dtr, Jose Alfredo Living Arrangements: Lives w/ in one-story home w/3 steps to enter w/no railing. Pt states holds onto door railing when going up the stairs. Indep w/ADL's and IADL'S. Transportation:?Pt states drives self and states no transportation concerns at this time.? also drives. DME: ? Denies using any DME and denies needs.?Pt states does have a pulse ox. No home O2. Verbal review of local DME co's, should pt qualify for O2 @ d/c. Made aware [facility] [place] [facility] w[place] and pt chooses [facility]. Discussed home O2 set-up process. Denies having further questions. HHC/SNF: No hx of either. Denies need for HHC. Discussed Pt Link and pt agreeable to consult. Order placed. Pt wishes to return home and states has no concerns with going home at time of discharge.? CM?to follow for home oxygen needs and any further discharge planning/needs.? Pt voices no further concerns/needs at this time.? Advised pt to ask for?CM?if any further questions/concerns/needs arise.? Voices understanding. PLAN:??Home. Follow for possible home O2 @ d/c. Consult placed for Pt Link Crystal MARTINSN?RN?CM
--- NOTE | 2023-03-22 12:37 | CASEMGMT ---
RN CHRISTIANO NOTE: Intro role of CM to patient and CARTER form explained re: Observation status for treatment of pulmonary embolism.? Explained hospitalization will be paid per her insurance policy for Outpatient billing?and condition will continue to be evaluated for Inpt necessity. Also let pt know that [facility] sends paper in the billing packet with their phone number if questions arise. Discussed Pharmacy section of CARTER form and self administered medication guideline.? Pt verbalizes understanding and does not have further questions. ?Form signed, copy made and placed in chart, and original given to pt. Crystal MARTINSN RN CM
--- NOTE | 2023-03-22 13:24 | CHAPLAIN ---
Type of Pastoral Visit _x__ Initial Visit ___ Follow-up Visit ___ On-call Visit ___ General Patient Visit ___ Spiritual Assessment ___ Family Conference ___ Bereavement ___ Rapid Response ___ Code Blue ___ Other (describe below) Pastoral Care Referral From _x__ Patient ___ Family ___ Nurse ___ Physician ___ Order Planner ___ Slot Operations Manager ___ Other (describe below) Sacrament/Intervention _x__ Active listening ___ Anointing ___ Religious ___ Bereavement ___ Communion ___ Jo Ann exploration ___ ___ Life review _x__ Prayer ___ Reconciliation ___ Sacrament of Sick ___ Supportive presence ___ Wedding ___ Other (describe below) Pastoral Comments
--- NOTE | 2023-03-22 14:45 | PCM.PN.HOSP ---
Reason for Visit Reason for Visit: Diagnoses Other pulmonary embolism without acute cor pulmonale (03/21/23) Subjective Subjective Patient reclined in bed, pleasant and cooperative with staff; denies feeling short of breath despite having increased respiratory rate. She states that she doesn't feel as bad as the last time she had a blood clot in the lung. Patient states that her breathlessness at home came on all of a sudden, denies recent ill contacts. Objective Data Objective Data Vital Signs: Vital Signs Temp Pulse Resp BP Pulse Ox O2 Del Method O2 Flow Rate 97.7 F L 90 18 145/93 H 99 Nasal Cannula 2 03/22/23 09:50 03/22/23 09:50 03/22/23 09:50 03/22/23 09:50 03/22/23 09:50 03/22/23 10:00 03/22/23 10:00 Oxygen Flow Rate (L/min) 2 Oxygen Delivery Method Nasal Cannula Weight: 92.533 kg Body Mass Index (BMI) 31.9 Intake & Output: Intake and Output for Last 24 Hours 03/20/23 03/21/23 03/22/23 23:59 23:59 23:59 Intake Total 1000 / 1000 2591.67 / 2591.67 Output Total 50 / 50 350 / 350 Balance 950 / 950 2241.67 / 2241.67 Lab / Micro Data Result Diagrams: 03/22/23 05:10 03/22/23 05:10 Labs: Laboratory Results - last 24 hr 03/21/23 14:26: D-Dimer Quant (PE/DVT) 3.33 H* 03/21/23 14:26: PT 15.1 H, INR 1.2 03/21/23 14:26: B-Natriuretic Peptide 529.6 H 03/21/23 16:30: Troponin I High Sens 322 H* 03/21/23 16:47: POC Glucose 320 H 03/21/23 18:20: Lactic Acid 3.1 H* 03/21/23 20:12: Troponin I High Sens 297 H* 03/21/23 21:43: POC Glucose 285 H 03/22/23 05:10: WBC 16.8 H, RBC 4.77, Hgb 13.1, Hct 41.6, MCV 87.2, MCH 27.5, MCHC 31.5 L, RDW Std Deviation 48.3 H, RDW Coeff of Yemi 15.1 H, Plt Count 236, MPV 10.6, Immature Gran % (Auto) 1.300 H, Neut % (Auto) 72.6 H, Lymph % (Auto) 17.0 L, [place] % (Auto) 7.0, Eos % (Auto) 1.4, Baso % (Auto) 0.7, Absolute Neuts (auto) 12.2 H, Absolute Lymphs (auto) 2.85, Nucleated RBC % 0 03/22/23 05:10: Sodium 141, Potassium 4.3, Chloride 116 H, Carbon Dioxide 21.0, Anion Gap 4 L, BUN 33 H, Creatinine 1.34 H, Estim Creat Clear Calc 35.28, Est GFR (MDRD) Af Amer 50 L, Est GFR (MDRD) Non-Af 41 L, BUN/Creatinine Ratio 24.6 H, Glucose 133 H, Calcium 8.5, TSH 1.64 03/22/23 06:19: POC Glucose 143 H 03/22/23 10:10: POC Glucose 265 H Radiography Diagnostic Testing: Radiology Impression Chest CTA 03/21/23 14:42 IMPRESSION: Bilateral pulmonary emboli as described. Pleural-based nodules are seen in the right lung as well as in the left lower lobe. Follow-up is recommended. Electronically Signed: Petey Santiago MD at 15:04 EDT Reading Location ID and State: [facility] / [place] , Service support , Rhythm Strip Rhythm Strip: Accelerated Junctional Rate: 91 Physical Exam Const Constitutional Narrative: Alert, oriented x3, obese HEENT head/scalp atraumatic Head and Scalp: normocephalic Eyes PERRL and EOMs intact bilaterally Neck supple and no JVD Chest Chest Narrative: H/o right breast mastectomy w/TRAM flap. Resp Resp Narrative: Tachypnea noted, no retractions, no use of accessory muscles. Lung sounds clear throughout, diminished bilateral upper lobes posteriorly. No cough noted. Cardio no murmurs, no rub and no gallops GI GI Narrative: Abdomen normal to inspection, normoactive bowel sounds, soft to palpation, nontender. Narrative: No CVA tenderness. Back/Spine normal ROM Extremity normal to inspection and full ROM General Extremity: edema bilateral lower extremity (1+ pitting edema) Neuro CN's II-XII intact bilaterally, moves all extremities, no focal motor deficits and no sensory deficits noted Motor Exam: strength 5/5 throughout Psych affect normal Assessment & Plan Assessment/Plan (1) Acute dyspnea: (2) Hypoxia: (3) Bilateral pulmonary embolism: PLAN: Plan 1. Recurrent pulmonary embolism, bilateral, with hypoxia and acute dyspnea - troponin maxed at 322 for #2, then decreased to 297 for #3; accelerated junctional rate controlled, no tachycardia - Echo obtained this AM, results pending; questionable right heart strain - patient trialed on room air, pulse oximetry only 90% with tachypnea; to remain on 2L oxygen via NC - patient reports having previous PE, but was taken off Eliquis; with recurrent PEs, pt restarted on Eliquis and educated on the need for lifelong anticoagulation now; discontinued the enoxaparin. 2. Hypertension/chronic congestive diastolic heart failure/hyperlipidemia - BPs trending 120-140s/80-105 upon admission - d/t decreased RV outflow and possible reduction in LV filling, caused by the PEs, losartan placed on hold to prevent complications of hypotension - continue home regimen of atorvastatin 3. Thyroidectomy after thyroid cancer and Right breast cancer with total mastectomy and TRAM flap/ chemotherapy - TSH value appropriate, continue home regimen of levothyroxine - maintain oncology follow up outpatient 4. Diabetes, type II - patient reports blood sugars controlled at home - glimepiride and dulaglutide placed on hold, transitioned to sliding scale coverage with lispro per AC/HS fingerstick glucometer for rapid correction 5. Urinary tract infections, chronic - no urinary complaints this admission - continue home regimen of methenamine DVT: Eliquis
[2023-03-22 16:57] LABS: Bedside Glucose 206 mg/dL (74-106)
[2023-03-22] MEDS: BENZOCAINE/MENTHOL 1 LOZENGE MUCOUS MEM (21:38)
[2023-03-22] MEDS: MELATONIN 3 MG TABLET PO (21:38)
[2023-03-22] MEDS: Atorvastatin Calcium 40 MG Tablet PO (21:38)
[2023-03-22 23:40] LABS: Bedside Glucose 260 mg/dL (74-106)
[2023-03-23 03:23] VITALS: BP 139/89; PULSE 86; RESP 18; TEMP 36.4; O2SAT 95
[2023-03-23 04:26] LABS: Hematocrit 36.9 % (37-47); Hemoglobin 11.6 g/dL (12.0-15.0); Mean Corp Hgb Conc 31.4 g/dL (32-36); Mean Platelet Vol. 10.5 fl (6.2-12.0); Platelet Count 225 K/mm3 (150-450); RBC Distribution Width SD 47.1 fl (35.1-43.9); Red Blood Count 4.29 M/mm3 (4.2-5.4); White Blood Count 15.6 K/mm3 (4.4-11.0)
[2023-03-23 04:49] LABS: Anion Gap 6 (5-15); BUN 29 mg/dL (7-18); BUN/Creat Ratio 24.6 RATIO (10-20); Calcium,Total 8.4 mg/dL (8.5-10.1); Chloride 115 mmol/L (98-107); Creatinine, Serum 1.18 mg/dL (0.55-1.02); EST Glomerular Filtration Rate 47 mL/min (>60); Est Glom Filt Rate - Afr Amer 57 mL/min (>60); Estimated Creatinine Clearance 40.06 ml/min; Glucose 167 mg/dL (74-106); Potassium 4.5 mmol/L (3.5-5.1); Sodium Level 140 mmol/L (136-145)
[2023-03-23] MEDS: Levothyroxine 125 MCG Tablet PO (05:14)
[2023-03-23] MEDS: Insulin Lispro 100 UNIT/ML INSULN.PEN SC ×4 (06:48→21:41)
[2023-03-23 07:09] LABS: Bedside Glucose 161 mg/dL (74-106)
[2023-03-23 07:21] VITALS: O2SAT 97
[2023-03-23 07:56] VITALS: O2SAT 75; O2SAT 87; O2SAT 95; O2SAT 97
[2023-03-23 08:46] VITALS: BP 152/67; PULSE 89; RESP 16; TEMP 36.5; O2SAT 95
[2023-03-23] MEDS: Insulin Glargine-YFGN 100 UNIT/ML Pen 15 UNIT SC (08:48)
[2023-03-23] MEDS: APIXABAN 5 MG TABLET 10 MG PO ×2 (08:48→21:37)
[2023-03-23] MEDS: Methenamine Hippurate 1 GM Tablet PO (08:49)
[2023-03-23] MEDS: Cholecalciferol (VIT D3) 25 MCG TABLET (1,000 UNITS) PO (08:49)
--- NOTE | 2023-03-23 09:43 | PN.HOSP_ITS ---
Reason for Visit Reason for Visit: Diagnoses Other pulmonary embolism without acute cor pulmonale (03/21/23) Dyspnea, unspecified (03/21/23) Hypoxemia (03/21/23) Subjective Subjective Patient sitting up in chair, denies complaints overnight, feeling well this morning. She removed the oxygen because it was bothering her ears, pulse oximetry documented at 95% on room air without signs of respiratory distress; patient encouraged to continue working on her PEP therapy. She denies pain on inspiration, but states an occasional heaviness in her chest not associated with her breathing pattern. Patient stating eagerness, and feels well enough, to go home as family from out of town are here to visit. Objective Data Objective Data Vital Signs: Vital Signs Temp Pulse Resp BP Pulse Ox O2 Del Method O2 Flow Rate 97.7 F L 89 16 152/67 H 95 Room Air 95 03/23/23 08:46 03/23/23 08:46 03/23/23 08:46 03/23/23 08:46 03/23/23 08:46 03/23/23 08:59 03/23/23 09:00 Oxygen Flow Rate (L/min) [ 2 AMBULATING with Oxygen #1] Oxygen Flow Rate (L/min) [At 2 REST with Oxygen] Oxygen Flow Rate (L/min) 95 Oxygen Delivery Method Room Air Weight: 92.533 kg Body Mass Index (BMI) 31.9 Intake & Output: Intake and Output for Last 24 Hours 03/21/23 03/22/23 03/23/23 23:59 23:59 23:59 Intake Total 1000 / 1000 2831.67 / 2831.67 340 / 340 Output Total 50 / 50 1350 / 1350 500 / 500 Balance 950 / 950 1481.67 / 1481.67 -160 / -160 Lab / Micro Data Result Diagrams: 03/23/23 04:18 03/23/23 04:18 Labs: Laboratory Results - last 24 hr 03/22/23 10:10: POC Glucose 265 H 03/22/23 16:16: POC Glucose 206 H 03/22/23 21:46: POC Glucose 260 H 03/23/23 04:18: WBC 15.6 H, RBC 4.29, Hgb 11.6 L, Hct 36.9 L, MCV 86.0, MCH 27.0, MCHC 31.4 L, RDW Std Deviation 47.1 H, RDW Coeff of Yemi 15.0 H, Plt Count 225, MPV 10.5 03/23/23 04:18: Sodium 140, Potassium 4.5, Chloride 115 H, Carbon Dioxide 19.0 L , Anion Gap 6, BUN 29 H, Creatinine 1.18 H, Estim Creat Clear Calc 40.06, Est GF R (MDRD) Af Amer 57 L, Est GFR (MDRD) Non-Af 47 L, BUN/Creatinine Ratio 24.6 H, Glucose 167 H, Calcium 8.4 L 03/23/23 06:46: POC Glucose 161 H Radiography Diagnostic Testing: Radiology Impression Echocardiogram 03/22/23 05:55 Interpretation Summary Normal LV size. Left ventricular systolic function is normal. The estimated ejection fraction is 55 %. Stage 1 diastolic dysfunction. Pulmonary artery systolic pressure is 73 mmHg. Moderate pulmonary hypertension. Ordering Physician: Brian Bradford Referring Physician: Salo Vides MD Performed By: Ann Varma RCS Rhythm Strip Rhythm Strip: Accelerated Junctional Rate: 91 Physical Exam Const Constitutional Narrative: Alert, oriented x3, no apparent distress, pleasant, cooperative, morbidly obese. HEENT head/scalp atraumatic and moist oral mucous membranes Head and Scalp: normocephalic Eyes PERRL and EOMs intact bilaterally Neck supple and no JVD Lymph Lymphatic: lymphedema mild (nonpitting to right arm, r/t lymphadenectomy s/p mastectomy from breast CA.) Chest Chest Narrative: Right mastectomy w/TRAM flap. Symmetrical chest rise w/equal excursion. Resp Resp Narrative: Normal respiratory effort, no retractions, no use of accessory muscles, lung sounds clear to auscultation throughout with diminished bilateral bases posteriorly. No cough. Cardio regular rate, regular rhythm, S1 normal heart sound, S2 normal heart sound, no murmurs, no rub and no gallops GI normal to inspection, nondistended, normoactive bowel sounds, soft to palpation and non-tender; Negative for hepatosplenomegaly Back/Spine normal ROM Extremity normal to inspection and full ROM Neuro CN's II-XII intact bilaterally, moves all extremities, no focal motor deficits and no sensory deficits noted Motor Exam: strength 5/5 throughout Psych affect normal Assessment & Plan Assessment/Plan (1) Acute dyspnea: (2) Hypoxia: (3) Bilateral pulmonary embolism: PLAN: Plan 1. Recurrent pulmonary embolism, bilateral, with hypoxia and acute dyspnea - /7 troponin highest at 322 for #2, then decreased to 297 for #3 - 03/22 accelerated junctional rate controlled, no tachycardia - 03/23 currently SR, rate of 87 - Echo obtained 03/22: moderate pulmonary HTN, PA pressure 73mmHg - patient on room air, encouraged use of PEP therapy; achieved I.S. volume of 1500ml - patient reports having previous PE, but was taken off Eliquis; with recurrent PEs, pt restarted on Eliquis and educated on the need for lifelong anticoagula tion now; discontinued the enoxaparin. 2. Hypertension/chronic congestive diastolic heart failure/hyperlipidemia - BPs trending 120-140s/80-105 upon admission, SBPs 140-150mmHg overnight - d/t decreased RV outflow and possible reduction in LV filling, caused by the PEs; losartan remains on hold to prevent possible complications of hypotension in light of PE presence - EF reduced to 55%, from 70% in 2019 - counseled obtaining daily weights and notifying PCP of changes more than 3pounds in a day or 5 pounds in a week; monitoring/restricting salt intake, monitoring BP at home - continue home regimen of atorvastatin 3. Thyroidectomy after thyroid cancer and Right breast cancer with total maste ctomy and TRAM flap/ chemotherapy - TSH value appropriate, continue home regimen of levothyroxine - maintain oncology follow up outpatient 4. Diabetes, type II - patient reports blood sugars controlled at home - glimepiride and dulaglutide placed on hold, transitioned to sliding scale coverage with lispro per AC/HS fingerstick glucometer for rapid correction - fingerstick glucometer results trending 160-265, cont SSI 5. Urinary tract infections, chronic - no urinary complaints this admission - continue home regimen of methenamine
[2023-03-23 11:30] LABS: Bedside Glucose 322 mg/dL (74-106)
--- NOTE | 2023-03-23 11:37 | PN.HOSP_ITS ---
Subjective Subjective Doing well, no issues overnight. Breathing well evaluation on room air Objective Data Objective Data Vital Signs: Vital Signs Temp Pulse Resp BP Pulse Ox O2 Del Method O2 Flow Rate 97.7 F L 89 16 152/67 H 95 Room Air 95 03/23/23 08:46 03/23/23 08:46 03/23/23 08:46 03/23/23 08:46 03/23/23 08:46 03/23/23 08:59 03/23/23 09:00 Oxygen Flow Rate (L/min) [ 7 AMBULATING with Oxygen #1] Oxygen Flow Rate (L/min) [At 2 REST with Oxygen] Oxygen Flow Rate (L/min) 95 Oxygen Delivery Method Room Air Weight: 204 lb Body Mass Index (BMI) 31.9 Intake & Output: Intake and Output for Last 24 Hours 03/22/23 03/23/23 03/24/23 03:59 03:59 03:59 Intake Total 1871.67 / 1871.67 1960 / 1960 340 / 340 Output Total 50 / 50 1350 / 1350 500 / 500 Balance 1821.67 / 1821.67 610 / 610 -160 / -160 Lab / Micro Data Result Diagrams: 03/23/23 04:18 03/23/23 04:18 Labs: Laboratory Results - last 24 hr 03/22/23 16:16: POC Glucose 206 H 03/22/23 21:46: POC Glucose 260 H 03/23/23 04:18: WBC 15.6 H, RBC 4.29, Hgb 11.6 L, Hct 36.9 L, MCV 86.0, MCH 27.0, MCHC 31.4 L, RDW Std Deviation 47.1 H, RDW Coeff of Yemi 15.0 H, Plt Count 225, MPV 10.5 03/23/23 04:18: Sodium 140, Potassium 4.5, Chloride 115 H, Carbon Dioxide 19.0 L , Anion Gap 6, BUN 29 H, Creatinine 1.18 H, Estim Creat Clear Calc 40.06, Est GFR (MDRD) Af Amer 57 L, Est GFR (MDRD) Non-Af 47 L, BUN/Creatinine Ratio 24.6 H , Glucose 167 H, Calcium 8.4 L 03/23/23 06:46: POC Glucose 161 H 03/23/23 11:10: POC Glucose 322 H Radiography Diagnostic Testing: Radiology Impression Echocardiogram 03/22/23 05:55 Interpretation Summary Normal LV size. Left ventricular systolic function is normal. The estimated ejection fraction is 55 %. Stage 1 diastolic dysfunction. Pulmonary artery systolic pressure is 73 mmHg. Moderate pulmonary hypertension. Ordering Physician: Brian Bradford Referring Physician: Salo Vides MD Performed By: Ann Varma RCS Rhythm Strip Rhythm Strip: Accelerated Junctional Rate: 91 Physical Exam Narrative General: Alert, Oriented x3, Cooperative, no acute distress HEENT: Atraumatic, PERRLA, EOMI, Normocephalic Oral: Moist Mucosa Neck: Supple, No JVD Lungs: Diminished, Normal air movement, No rhonchi, No wheeze, No rales, Cardiovascular: Regular rate, Regular Rhythm, Normal S1, Normal S2, No murmurs Abdomen: Soft, Non Tender, Non-Distended, No Hepato-splenomegaly Extremities: No edema, Capillary Refill Less than 3 Seconds Skin: No rashes, No breakdown Musculoskeletal: No Tenderness to Palpation of Joints or Extremities Neurological: Cranial nerves II-XII grossly intact, Motor Exam 5/5 strength throughout, Sensory exam intact to light touch and pain Psych/Mental Status: Normal Affect, Appropriate Assessment & Plan Assessment/Plan (1) Bilateral pulmonary embolism: PLAN: Plan 1.? 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 She does have elevated troponins but she is not tachycardic ? Echo with normal EF and mild right-sided systolic dysfunction consistent with pulmonary hypertension from her PEs ? We will transition to p.o. Eliquis ? We will remain on 2 L nasal cannula, she needed 7 L with ambulation today also consistent with her pulmonary hypertension ? Does appear that she has had a previous PE and was on anticoagulation given repeat PE she will need to be on anticoagulation permanently ? No TRAVIS on admission 2.? Chronic diastolic CHF/HTN/HLD ? Blood pressures are stable ? Continue with Lipitor ? Given the setting of of PE will hold the losartan 3.? DM2 ? We will hold oral medications ? Continue with insulin ? Accu-Cheks ACHS ? We will make adjustments as necessary 4.? Breast cancer status post right mastectomy and chemotherapy/thyroid cancer status post thyroidectomy with hypothyroidism ? Continue with Synthroid ? Continue to follow-up with outpatient oncology DVT: Eliquis Charges/Coding Visit Charges Inpatient E&M: 80443 Subs Hosp L2
--- NOTE | 2023-03-23 14:25 | CASEMGMT ---
Sw presented to bedside, introduced self to patient and explained sw role during admission. Patient able to verify that Advanced Directives are in place including POA and living will. Rui Carlson, CLINICAL SPECIALIST, [employer]
[2023-03-23 15:00] VITALS: BP 152/70; PULSE 80; RESP 16; TEMP 36.6; O2SAT 99
[2023-03-23 16:41] LABS: Bedside Glucose 219 mg/dL (74-106)
[2023-03-23 21:33] VITALS: BP 149/70; PULSE 83; RESP 18; TEMP 36.9; O2SAT 100
[2023-03-23] MEDS: Atorvastatin Calcium 40 MG Tablet PO (21:37)
[2023-03-23] MEDS: 0.9% Saline Lock 10 ML Syringe IV (21:42)
[2023-03-23 22:13] LABS: Bedside Glucose 210 mg/dL (74-106)
[2023-03-23] MEDS: MELATONIN 3 MG TABLET PO (23:37)
[2023-03-24 04:41] VITALS: BP 137/73; PULSE 82; RESP 18; TEMP 36.8; O2SAT 93
[2023-03-24 05:33] VITALS: O2SAT 93
[2023-03-24] MEDS: Levothyroxine 125 MCG Tablet PO (06:10)
[2023-03-24] MEDS: Insulin Glargine-YFGN 100 UNIT/ML Pen 15 UNIT SC (08:30)
[2023-03-24] MEDS: Insulin Lispro 100 UNIT/ML INSULN.PEN SC ×2 (08:30→11:24)
[2023-03-24] MEDS: Methenamine Hippurate 1 GM Tablet PO (08:31)
[2023-03-24] MEDS: APIXABAN 5 MG TABLET 10 MG PO (08:31)
[2023-03-24] MEDS: 0.9% Saline Lock 10 ML Syringe IV (08:32)
[2023-03-24] MEDS: Cholecalciferol (VIT D3) 25 MCG TABLET (1,000 UNITS) PO (08:32)
[2023-03-24 09:57] VITALS: BP 137/57; PULSE 86; RESP 16; TEMP 37.2; O2SAT 93
[2023-03-24 10:26] LABS: Bedside Glucose 174 mg/dL (74-106)
[2023-03-24 11:37] LABS: Bedside Glucose 291 mg/dL (74-106)
[2023-03-24 12:28] VITALS: O2SAT 90; O2SAT 96
--- NOTE | 2023-03-24 13:03 | DCINST_ITS ---
Discharge Instructions Diet Discharge Diet: Carb Control Diet Activity Discharge Activity: Return to Normal Activity Dressing / Incision Call your doctor if you observe: Fever of 101 or Higher, Shortness of breath, Dizziness, Fainting spells, Swelling in the ankles, Chest pain and Increased palpitations (irregular heartbeat) Follow Up Care Test Results: Test results from this visit will be discussed in further detail at your follow- up appointment, if applicable. Discharge Plan Admission Admit Date/Time: 03/23/23 15:01 Attending Provider: Jose Morejon Primary Care Provider: Deshawn Vides Consulting Providers: Brian Bradford Discharge Orders/Prescriptions Prescriptions: New Eliquis 5 mg Tablet 10 mg PO BID 30 Days Qty: 120 0RF Rx Instructions: Take 2 tablets twice daily for 5 more days then take 1 tablet twice daily Continued atorvastatin 40 mg tablet 40 mg PO DAILY methenamine hippurate 1 gram tablet 1 g PO DAILY ascorbic acid (vitamin C) 500 mg Tablet 500 mg PO DAILY levothyroxine [Synthroid] 125 mcg tablet 125 mcg PO MOTUWETHFRSA levothyroxine [Synthroid] 125 mcg tablet 250 mcg PO RICHEY glimepiride 4 mg tablet 4 mg PO DAILY losartan 100 mg tablet 100 mg PO DAILY cholecalciferol (vitamin D3) 25 mcg (1,000 unit) Tablet 25 mcg PO DAILY Trulicity 3 mg/0.5 mL pen injector 3 mg SUBCUT TU Referrals / Follow Up: Deshawn Vides MD [Primary Care Provider] - Within 1 Week Disposition Disposition (needs filled in before D/C Order can be placed): Home, Self Care
--- NOTE | 2023-03-24 13:23 | PCM.DC.SUM ---
Providers Date of Admission: 03/23/23 Primary Care Physician: Dr. Deshawn Vides MD Reason For Visit: PE Diagnosis Discharge Diagnosis (1) Bilateral pulmonary embolism: Status: Acute Code(s): I26.99 - Other pulmonary embolism without acute cor pulmonale Medications at Discharge Home Medications ascorbic acid (vitamin C) 500 mg tablet 500 mg PO DAILY SUPPLEMENT 03/21/23 atorvastatin 40 mg tablet 40 mg PO DAILY CHOLESTEROL 03/21/23 cholecalciferol (vitamin D3) 25 mcg (1,000 unit) tablet 25 mcg PO DAILY SUPPLEMENT 03/21/23 dulaglutide 3 mg/0.5 mL subcutaneous pen injector (Trulicity) 3 mg subcut TU DM 03/21/23 glimepiride 4 mg tablet 4 mg PO DAILY DM 03/21/23 levothyroxine 125 mcg tablet (Synthroid) 125 mcg PO MOTUWETHFRSA THYROID 03/21/23 levothyroxine 125 mcg tablet (Synthroid) 250 mcg PO RICHEY THYROID 03/21/23 losartan 100 mg tablet 100 mg PO DAILY BP 03/21/23 methenamine hippurate 1 gram tablet 1 g PO DAILY infection 03/21/23 apixaban 5 mg tablet (Eliquis) 10 mg PO BID 30 days #120 tabs 03/24/23 Hospital Course Operations None Procedures 2-D Echocardiogram Summary of Care Provided Minutes Spent on Discharge: 36 Hospital Course: Per HPI: OTTONIEL FERNANDEZ, is a 77 F with history of DVT and PE many years ago came to ED for shortness of breath that is started over the weekend.? Patient stated on past Sunday she was feeling dyspnea on exertion and moving furniture's and house chores.? This got progressively worse that today she felt tired and dyspnea even while brushing.? She denies any acute chest pain, pressure or tightness, fever, leg swelling or chest congestion. Patient states for last 4 months she has intermittent episodes of cough which is dry, and sometimes he will feel right posterior lateral chest pain on coughing.? She did not seek medical attention or forensic identification specialist for that. She has a history of breast cancer and had right mastectomy and was chemotherapy about 18 years ago when she had left leg DVT.? After that report 6-7 years ago she had pulmonary embolism Mandeep was on Eliquis at that time.? She also has history of thyroid cancer and had thyroidectomy long time ago about 12 years ago In ED, twelve-lead EKG shows accelerated junctional rhythm 91 bpm, QTc 435 ms. Vitals in ED shows patient is hypoxic 88% on room air required 3 to 4 L of oxygen.? She was also dyspnea at rest, tachypneic respiratory rate 27 to 30/min and BP was low 81/60 which improved to 163/89. tPA was done which shows bilateral pulmonary embolism discussed in detail in assessment and plan.? Patient also has CKD which is being managed by his PCP. Hospital Course: 1. Recurrent bilateral pulmonary embolism with acute hypoxia and possible heart strain?77-year-old female who does have a history of breast cancer as well as thyroid cancer of both have been treated and in remission presents to the hospital with severe shortness of breath. She was found to have bilateral PEs with an elevated troponin and mild right ventricular systolic dysfunction consistent with right heart strain from those PEs. Yesterday she was requiring on 7 L nasal cannula with ambulation however today she maintained her oxygen saturation with ambulation at 90% on room air. She is currently on Eliquis at 10 mg p.o. twice daily for the next 5 days and then will be transition to 5 mg p.o. twice daily. Given the fact that these are recurrent blood clots in the setting of her cancer history, she will need to remain on anticoagulation indefinitely. This was discussed with her. I discussed with her the plan for discharge today she expressed understanding of the risk benefits going home and would like to go home today. I do recommend that she follow-up with her PCP in 3 to 5 days. 2. Chronic diastolic CHF, hypertension, hyperlipidemia, type 2 diabetes, CKD 3B all chronic medical conditions which complicate her care. Her home medications were continued where appropriate Physical Exam Narrative General: Alert, Oriented x3, Cooperative, no acute distress HEENT: Atraumatic, PERRLA, EOMI, Normocephalic Oral: Moist Mucosa Neck: Supple, No JVD Lungs: Diminished, Normal air movement, No rhonchi, No wheeze, No rales, Cardiovascular: Regular rate, Regular Rhythm, Normal S1, Normal S2, No murmurs Abdomen: Soft, Non Tender, Non-Distended, No Hepato-splenomegaly Extremities: No edema, Capillary Refill Less than 3 Seconds Skin: No rashes, No breakdown Musculoskeletal: No Tenderness to Palpation of Joints or Extremities Neurological: Cranial nerves II-XII grossly intact, Motor Exam 5/5 strength throughout, Sensory exam intact to light touch and pain Psych/Mental Status: Normal Affect, Appropriate Weight / BMI Weight Weight: 204 lb Body Mass Index (BMI) 31.9 ABG / Lab / Microbiology Data Result Diagrams: 03/23/23 04:18 03/23/23 04:18 Laboratory: Laboratory Results - last 24 hr 03/23/23 16:20: POC Glucose 219 H 03/23/23 21:40: POC Glucose 210 H 03/24/23 08:29: POC Glucose 174 H 03/24/23 11:20: POC Glucose 291 H D/C Instructions Discharge Diet: Carb Control Diet Call your doctor if you observe: Fever of 101 or Higher, Shortness of breath, Dizziness, Fainting spells, Swelling in the ankles, Chest pain and Increased palpitations (irregular heartbeat) Meaningful Use Info Meaningful Use Diagnoses (Choose all that apply): None applicable Discharge Plan Admission Admit Date/Time: 03/23/23 15:01 Attending Provider: Jose Morejon Primary Care Provider: Deshawn Vides Consulting Providers: Brian Bradford Discharge Orders/Prescriptions Prescriptions: New Eliquis 5 mg Tablet 10 mg PO BID 30 Days Qty: 120 0RF Rx Instructions: Take 2 tablets twice daily for 5 more days then take 1 tablet twice daily Continued atorvastatin 40 mg tablet 40 mg PO DAILY methenamine hippurate 1 gram tablet 1 g PO DAILY ascorbic acid (vitamin C) 500 mg Tablet 500 mg PO DAILY levothyroxine [Synthroid] 125 mcg tablet 125 mcg PO MOTUWETHFRSA levothyroxine [Synthroid] 125 mcg tablet 250 mcg PO RICHEY glimepiride 4 mg tablet 4 mg PO DAILY losartan 100 mg tablet 100 mg PO DAILY cholecalciferol (vitamin D3) 25 mcg (1,000 unit) Tablet 25 mcg PO DAILY Trulicity 3 mg/0.5 mL pen injector 3 mg SUBCUT TU Referrals / Follow Up: Deshawn Vides MD [Primary Care Provider] - Within 1 Week Disposition Disposition (needs filled in before D/C Order can be placed): Home, Self Care Charges/Coding Visit Charges Inpatient E&M: 47446 Disch Hosp >30min
== END 2023-03-24 15:59 | disposition home or self-care (01) | DRG 175 ==
LOC: ED 15:19 → PCU 15:58
PROVIDERS: Admitting Provider Internal Medicine; Emergency Provider Emergency Medicine; PCP Family Medicine; Visit Provider Family Medicine
DX: I26.99 Other pulmonary embolism without acute cor pulmonale (principal); J96.21 Acute and chronic respiratory failure with hypoxia; I13.0 Hypertensive heart and chronic kidney disease with heart failure and stage 1 through stage 4 chronic kidney disease, or unspecified chronic kidney disease; I50.32 Chronic diastolic (congestive) heart failure; I27.20 Pulmonary hypertension, unspecified; E11.22 Type 2 diabetes mellitus with diabetic chronic kidney disease; N18.32 Chronic kidney disease, stage 3b; E78.5 Hyperlipidemia, unspecified; E89.0 Postprocedural hypothyroidism; E87.5 Hyperkalemia; R03.1 Nonspecific low blood-pressure reading; Z79.84 Long term (current) use of oral hypoglycemic drugs; Z79.890 Hormone replacement therapy; Z79.899 Other long term (current) drug therapy; Z85.3 Personal history of malignant neoplasm of breast; Z85.850 Personal history of malignant neoplasm of thyroid; Z92.21 Personal history of antineoplastic chemotherapy; Z90.11 Acquired absence of right breast and nipple; Z86.711 Personal history of pulmonary embolism; Z86.718 Personal history of other venous thrombosis and embolism
CPT/HCPCS: 36415; 71045; 71275; 80048; 82962; 83605; 83880; 84443; 84484; 85025; 85027; 85379; 85610; 93005; 93306; 94668; 97112; 97116; 97162; 97166; 97530; 97535; 99284; J7030; Q9967; A4216

== ENCOUNTER 2023-08-20 03:52 | Emergency (ER) | payer MEDICARE, SELFPAY ==
[2023-08-20 03:53] VITALS: BP 163/77; PULSE 89; RESP 18; TEMP 36.5; O2SAT 98; BMI 28.1
[2023-08-20 04:00] VITALS: BP 163/77; PULSE 89; RESP 18; TEMP 36.5; O2SAT 98
--- NOTE | 2023-08-20 04:05 | EX.ED.DYSGE1 ---
HPI History of Present Illness Chief Complaint: Cellulitis [facility] Medical History Breast cancer Diabetes DVT (deep venous thrombosis) Pulmonary embolism Thyroid cancer Home Medications ascorbic acid (vitamin C) 500 mg tablet 500 mg PO DAILY SUPPLEMENT 03/21/23 [History Last Taken 03/20/23] atorvastatin 40 mg tablet 40 mg PO DAILY CHOLESTEROL 03/21/23 [History Last Taken 03/20/23] cholecalciferol (vitamin D3) 25 mcg (1,000 unit) tablet 25 mcg PO DAILY SUPPLEMENT 03/21/23 [History Last Taken 03/20/23] glimepiride 4 mg tablet 4 mg PO DAILY DM 03/21/23 [History Last Taken 03/20/23] levothyroxine 125 mcg tablet (Synthroid) 125 mcg PO DAILY THYROID 03/21/23 [History Last Taken 03/20/23] losartan 100 mg tablet 100 mg PO DAILY BP 03/21/23 [History Last Taken 03/20/23] methenamine hippurate 1 gram tablet 1 g PO DAILY infection 03/21/23 [History Last Taken 03/20/23] apixaban 5 mg tablet (Eliquis) 5 mg PO BID 08/20/23 [History Last Taken Unknown] aspirin 81 mg tablet,delayed release (Adult Aspirin Regimen) 81 mg PO DAILY 08/20/23 [History Last Taken Unknown] cephalexin 500 mg capsule 500 mg PO TID 7 days #21 caps 08/20/23 [Rx Last Taken Unknown] dulaglutide 1.5 mg/0.5 mL subcutaneous pen injector (Trulicity) 1.5 mg subcut QWEEK 08/20/23 [History Last Taken Unknown] oxybutynin chloride 10 mg tablet,extended release 24 hr 10 mg PO DAILY 08/20/23 [History Last Taken Unknown] sulfamethoxazole 800 mg-trimethoprim 160 mg tablet (Bactrim DS) 1 tab PO BID 7 days #14 tabs 08/20/23 [Rx Last Taken Unknown] Allergy/AdvReac Type Severity Reaction Status Date / Time azithromycin [From Zithromax] Allergy Swelling Verified 08/20/23 03:56 Family History Father Heart disease Surgical History H/O mastectomy H/O thyroidectomy Social History household members: spouse Smoking Status: Never smoker EXAM Physical Exam Const Vital Signs: 08/20/23 03:53 08/20/23 04:00 Temperature 97.7 F L 97.7 F L Temperature Source Temporal Temporal Pulse Rate 89 89 Respiratory Rate 18 18 Blood Pressure 163/77 H 163/77 H Blood Pressure Mean 105 105 Pulse Ox 98 98 MDM MDM MDM Narrative Medical decision making narrative: HISTORY OF PRESENT ILLNESS: 78-year-old female here with concern for right arm redness pain. States she did crack her right thumb she thinks it may have originated from this. Denies any nausea fever. States has had this before approximate 15 years ago. Labs as red swollen itchy not initially painful REVIEW OF SYSTEMS: Pertinent positives: Arm redness Pertinent negatives: Numbness, loss sensation PHYSICAL EXAM: Nursing triage notes reviewed, Vital signs reviewed Constitutional: please see mdm Extremities: No edema Neuro: Intact 5/5 strength with ok sign (median), intact finger abduction (ulnar) intact wrist extension (radial n). Intact sensation in the radial, ulnar, and median nerve distributions. Skin: Confluent redness, blanchable, no fluctuance, induration, crepitus or bullae MEDICAL DECISION MAKING: Chief Complaint: Arm redness External records reviewed: No recent advanced imaging of the involved extremity Factors affecting care: Type 2 diabetes, hyperlipidemia, hypertension on Eliquis secondary to PE DVT MDM Narrative: Patient was hemodynamically stable, afebrile, nontoxic-appearing. Exam with confluent erythema noted over the right arm mostly with forearm going up from the wrist to the mid humerus. I considered the following differential diagnosis: Cellulitis, necrotizing fasciitis Exam consistent with cellulitis. No clinical suspicion for abscess or necrotizing fasciitis. Will give Keflex and Bactrim for empiric antimicrobial therapy to cover for staph and strep species The patient and/or family, caregivers express understanding. The patient and/or family, caregivers agrees with the plan. Shared decision making: I will have a discussion with the patient and or visitors regarding risk/benefits of further testing or admission. They will be made aware of of the risk/benefits inherent in this decision they will be given the opportunity to voice understanding. Total critical care time today provided was at least 0 [] minutes. This excludes separately billable procedures. Critical care time (if documented) is secondary to the patient having high probability of clinically significant/life threatening deterioration in the patient's condition which required my urgent intervention. Impression: 1. Acute right arm cellulitis 2. History of diabetes Dispo: Discharge home Discharge Plan Triage Chief Complaint: Cellulitis ED Provider: Matthew Betancur Dx/Rx/DC Orders Instructions: Cellulitis Dc Prescriptions: New sulfamethoxazole-trimethoprim [Bactrim DS] 800-160 mg tablet 1 tab PO BID 7 Days Qty: 14 0RF cephalexin 500 mg capsule 500 mg PO TID 7 Days Qty: 21 0RF No Action atorvastatin 40 mg tablet 40 mg PO DAILY methenamine hippurate 1 gram tablet 1 g PO DAILY ascorbic acid (vitamin C) 500 mg Tablet 500 mg PO DAILY levothyroxine [Synthroid] 125 mcg tablet 125 mcg PO DAILY glimepiride 4 mg tablet 4 mg PO DAILY losartan 100 mg tablet 100 mg PO DAILY cholecalciferol (vitamin D3) 25 mcg (1,000 unit) Tablet 25 mcg PO DAILY aspirin [Adult Aspirin Regimen] 81 mg tablet,delayed release (DR/EC) 81 mg PO DAILY oxybutynin chloride 10 mg tablet extended release 24hr 10 mg PO DAILY Trulicity 1.5 mg/0.5 mL pen injector 1.5 mg SUBCUT QWEEK Eliquis 5 mg Tablet 5 mg PO BID Rx Instructions: Take 2 tablets twice daily for 5 more days then take 1 tablet twice daily Primary Care Provider: Deshawn Vides Referrals: Deshawn Vides MD [Primary Care Provider] - Activity Restrictions/Additional Instructions: Thank you for trusting us with your care today! Please take Tylenol (2 pills, 650 mg), ibuprofen (2 pills, 400 mg) every 6 hours as needed for pain and fever control. Please take Bactrim and Keflex as prescribed. Please complete entire course Please return to the emergency department if your symptoms change or worsen. Specifically develop progressive redness that spreads up your arm or matter of hours. If you develop lightheadedness, dizziness, vomiting unable to take antibiotics, if you start to appear sellers sweaty or more ill. Please follow with your primary care physician for further outpatient evaluation and management. Disposition Disposition: Home, Self Care
[2023-08-20] MEDS: Cephalexin 250 MG Capsule 500 MG PO (04:18)
[2023-08-20] MEDS: Smz/Tmp Ds Tablet 1 TABLET PO (04:18)
== END 2023-08-20 04:21 | disposition home or self-care (01) ==
LOC: ED 04:16
PROVIDERS: Emergency Provider Emergency Medicine; PCP Nurse Practitioner Family; Visit Provider Emergency Medicine
DX: L03.113 Cellulitis of right upper limb (principal); E11.9 Type 2 diabetes mellitus without complications; I10 Essential (primary) hypertension; E78.5 Hyperlipidemia, unspecified; E89.0 Postprocedural hypothyroidism; Z79.82 Long term (current) use of aspirin; Z79.01 Long term (current) use of anticoagulants; Z79.84 Long term (current) use of oral hypoglycemic drugs; Z79.890 Hormone replacement therapy; Z79.899 Other long term (current) drug therapy; Z86.718 Personal history of other venous thrombosis and embolism; Z86.711 Personal history of pulmonary embolism
CPT/HCPCS: 99283

== ENCOUNTER → 2024-02-29 | Outpatient (CLI) | payer MEDICARE, SELFPAY ==
--- NOTE | 2024-02-29 11:46 | BI_ITS ---
MAMMOGRAPHY - BILATERAL SCREENING REASON FOR EXAM: Female, 78 years old. Routine annual screening examination. PERTINENT HISTORY: Personal history of breast cancer. Prior right mastectomy with TRAM flap reconstruction. Remote left excisional breast biopsy. TECHNIQUE: Digital bilateral breast sharon (3D mammographic acquisition) in the CC and MLO projections. 2-D mediolateral oblique (MLO) and craniocaudad (CC) views of both breasts were obtained. CAD: Full Field Digital Mammography with Computer Added Detection was performed. COMPARISON: Comparison is made with prior study dated February 26, 2023 and February 20, 2022. FINDINGS: Breast Composition: The left breast is heterogeneously dense, which may obscure small masses. Right breast is fatty. There are no dominant masses or suspicious calcifications. No other significant abnormalities are identified. There has been no significant change since the prior study. BI/SCRN MAMM (CAD)W/SHARON BILAT IMPRESSION: Stable bilateral screening mammogram. Yearly follow-up mammogram recommended. (A) ASSESSMENT CATEGORY: BIRADS Category 2: Benign. A letter regarding these results will be sent to the patient by the facility within 30 days. Approximately 10% of breast cancers are not detected by mammography. A normal mammogram should not delay biopsy of a clinically suspicious abnormality. [id number] Electronically Signed: Petey Santiago MD at 12:56 EDT ,
== END | disposition home or self-care (01) ==
LOC: OPBI 11:45
PROVIDERS: PCP Nurse Practitioner Family; Visit Provider Nurse Practitioner Family
DX: Z12.31 Encounter for screening mammogram for malignant neoplasm of breast (principal); Z85.3 Personal history of malignant neoplasm of breast; Z90.11 Acquired absence of right breast and nipple
CPT/HCPCS: 77063; 77067

== ENCOUNTER → 2024-09-03 | Outpatient (CLI) | payer MEDICARE, SELFPAY ==
--- NOTE | 2024-09-03 13:47 | ECHOD_ITS ---
Reason For Study: PULMONARY HYPERTENSION Procedure This was a 2D Doppler, Color Flow transthoracic echocardiogram. Myocardial strain analysis was performed in this exam to aid in the assessment of cardiac function. Exam performed in department. Left Ventricle Normal LV size. Left ventricular systolic function is normal. The left ventricular ejection fraction is 65 %. No regional wall motion abnormalities noted. Right Ventricle Normal RV size. Normal systolic function. Atria Normal left atrium. Normal right atrium. Mitral Valve Normal mitral valve. Mild (1+) eccentric mitral valve insufficiency. Tricuspid Valve Normal tricuspid valve. Mild (1+) tricuspid valve insufficiency. Aortic Valve Trisinus/trileaflet aortic valve. Pulmonic Valve Normal pulmonic valve. Great Vessels Normal aortic root. The pulmonary artery is normal size. Normal inferior vena cava. Pericardium/Pleural No pericardial effusion. MMode/2D Measurements & Calculations LVIDd: 4.3 cm IVSd: 1.3 cm LVOT diam: 1.9 cm LVIDs: 2.7 cm LVPWd: 1.2 cm LVOT area: 2.9 cm2 RVDd: 3.5 cm FS: 38.4 % LAV(MOD-bp): 55.5 ml LVAd ap4: 18.8 cm2 LVAd ap2: 18.5 cm2 LAV(MOD-bp) Indexed: 27.3 ml/m2 LVLd ap4: 7.0 cm LVLd ap2: 6.6 cm LAV(MOD-sp2): 63.1 ml EDV(MOD-sp4): 40.8 ml EDV(MOD-sp2): 42.2 ml LAV(MOD-sp4): 50.1 ml EDV(sp4-el): 42.6 ml EDV(sp2-el): 44.0 ml LVAs ap4: 9.0 cm2 LVAs ap2: 9.5 cm2 LVLs ap4: 5.7 cm LVLs ap2: 5.5 cm ESV(MOD-sp4): 12.0 ml ESV(MOD-sp2): 13.5 ml ESV(sp4-el): 12.0 ml ESV(sp2-el): 13.9 ml EF(MOD-sp4): 70.7 % EF(MOD-sp2): 68.1 % EF(sp4-el): 71.7 % SV(MOD-sp4): 28.9 ml SV(MOD-sp2): 28.7 ml SV(sp4-el): 30.6 ml SI(MOD-sp4): 14.2 ml/m2 SI(MOD-sp2): 14.1 ml/m2 Ao sinus diam: 3.[address] Junction: 2.5 cm LA A4 area: 18.3 cm2 LA dimension(2D): 3.9 cm TAPSE: 1.7 cm RA A4 area: 10.6 cm2 Time Measurements MV dec time: 0.30 sec Doppler Measurements & Calculations MV E max jeanmarie: 119.3 cm/sec Lat Peak E' Jeanmarie: 8.1 cm/sec Med Peak E' Jeanmarie: 6.7 cm/sec MV A max jeanmarie: 113.4 cm/sec E/E' lat: 14.8 E/E' med: 17.9 MV E/A: 1.1 MV V2 max: 126.7 cm/sec MV dec slope: 393.4 cm/sec2 Ao V2 max: 130.7 cm/sec MV max P.4 mmHg Ao max P.8 mmHg MV V2 mean: 89.3 cm/sec Ao V2 mean: 88.0 cm/sec MV mean P.4 mmHg Ao mean P.6 mmHg MV V2 VTI: 38.7 cm Ao V2 VTI: 29.9 cm MVA(VTI): 2.1 cm2 AV (velocity ratio): 0.93 MEGHANA(I,D): 2.7 cm2 MEGHANA(V,D): 2.9 cm2 LV V1 max: 132.1 cm/sec SV(LVOT): 79.5 ml PA V2 max: 86.5 cm/sec LV V1 max P.0 mmHg LV V1 mean P.9 mmHg LV V1 mean: 95.1 cm/sec LV V1 VTI: 27.7 cm TR max jeanmarie: 219.1 cm/sec TR max P.2 mmHg ECHO/Echo Complete Interpretation Summary Normal LV size. Left ventricular systolic function is normal. The left ventricular ejection fraction is 65 %. The global longitudinal strain is normal. The global longitudinal strain = -18. 7 % (normal). Ordering Physician: Sharri Ac Referring Physician: Sharri Ac Performed By: Sharla Baron RDCS
== END | disposition home or self-care (01) ==
PROVIDERS: PCP Nurse Practitioner Family; Referring Provider Nurse Practitioner Family; Visit Provider Nurse Practitioner Family
DX: I27.20 Pulmonary hypertension, unspecified (principal)
CPT/HCPCS: 93306

== ENCOUNTER → 2024-09-17 | Outpatient (CLI) | payer MEDICARE, SELFPAY ==
--- NOTE | 2024-09-17 11:57 | BD_ITS ---
STUDY: DUAL ENERGY X-RAY ABSORPTIOMETRY / DXA REASON FOR EXAM: Female, 79 years old. [id number] -- Postmenopausal status TECHNIQUE: Bone Mineral Density (BMD) measurements of lumbar spine and bilateral hips were obtained. COMPARISON: Comparison is made with prior study of January 20, 2021. FINDINGS: Lumbar Spine (L1-L4): g/cm2 (0.970) / T-score (-0.8) / Z-score (1.8) Findings are suggestive of normal bone density with a low fracture risk. Left Femur Total: g/cm2 (0.729) / T-score (-1.7) / Z-score (0.2) Left Femoral Neck: g/cm2 (0.703) / T-score (-1.3) / Z-score (0.9) Right Femur Total: g/cm2 (0.753) / T-score (-1.5) / Z-score (0.4) Right Femoral Neck: g/cm2 (0.644) / T-score (-1.8) / Z-score (0.3) The T-Scores on the most recent prior examination were: Lumbar Spine (L1-L4): There has been worsening of bone density since the previous examination. Left Femur Total: which represents a worsening of 8.8%. Right Femur Total: which represents an improvement of 1.6%. BD/Dexa Bone Density Study IMPRESSION: The patient is considered osteopenic as outlined below according to World [employer] Organization (WHO) criteria with a moderate fracture risk. There has been worsening of bone density since the previous examination. Reference Information: The T-score is the number of standard deviations above or below the standard which is normal for young adults at their peak bone mineral density. The World Health Organization (WHO) interprets the T-scores as follows: Above -1 Normal bone density Between -1 and -2.5 Osteopenia Equal to / or below -2.5 Osteoporosis As a practical clinical guideline, osteopenia may be graded as follows: Mild -1 through -1.5 Moderate -1.6 through -2.0 Severe -2.1 through -2.4 The Z-score is the number of standard deviations above or below age-matched controls. A Z-score of less than -1.5 would be considered abnormal. References: 1. NIH Osteoporosis and Related Bone Diseases www osteo.org 2. International Society for Clinical Densitometry www iscd.org 3. National Osteoporosis Foundation www nof.org Electronically Signed: Petey Santiago MD at 13:50 EST ,
== END | disposition home or self-care (01) ==
LOC: OPBD 11:56
PROVIDERS: PCP Nurse Practitioner Family; Referring Provider Nurse Practitioner Family; Visit Provider Nurse Practitioner Family
DX: Z13.820 Encounter for screening for osteoporosis (principal); Z78.0 Asymptomatic menopausal state
CPT/HCPCS: 77080

== ENCOUNTER → 2025-03-05 | Outpatient (CLI) | payer MEDICARE, SELFPAY ==
[2025-03-05 12:49] LABS: Potassium 5.1 mmol/L (3.3-5.1)
== END | disposition home or self-care (01) ==
PROVIDERS: PCP Nurse Practitioner Family; Referring Provider Nurse Practitioner Family; Visit Provider Nurse Practitioner Family
DX: E87.5 Hyperkalemia (principal)
CPT/HCPCS: 84132

== ENCOUNTER → 2025-03-18 | Outpatient (CLI) | payer MEDICARE, SELFPAY ==
--- NOTE | 2025-03-18 13:45 | BI_ITS ---
EXAM: SCRN MAMM (CAD)W/SHARON BILAT DATE: 03/18/2025 CLINICAL HISTORY: F, Age 79 y/o , BREAST CANCER SCREENING BREAST CANCER RISK ASSESSMENT: Na TECHNIQUE: Bilateral screening digital breast tomosynthesis with 2D and 3D images. Computer aided detection. COMPARISON: Prior exam(s) were compared FINDINGS: TISSUE DENSITY: The breast tissue is heterogenously dense, which may obscure small masses. Bilateral Breast Mammographic Findings: Left breast: There is a mass in the upper-outer left breast at mid depth. Right breast: No suspicious masses, calcifications or other abnormalities are identified. BI/SCRN MAMM (CAD)W/SHARON BILAT IMPRESSION: OVERALL FINAL ASSESSMENT: BIRADS 0 Incomplete: Need additional imaging evaluati on. RECOMMENDATION: Incomplete: Need additional imaging evaluation with diagnostic left breast mamm ogram and ultrasound . A letter with findings and recommendations will be mailed to the patient. Reading Location: [id number]
== END | disposition home or self-care (01) ==
LOC: OPBI 13:43
PROVIDERS: PCP Nurse Practitioner Family; Referring Provider Nurse Practitioner Family; Visit Provider Nurse Practitioner Family
DX: Z12.31 Encounter for screening mammogram for malignant neoplasm of breast (principal)
CPT/HCPCS: 77063; 77067

== ENCOUNTER → 2025-03-27 | Outpatient (CLI) | payer MEDICARE, SELFPAY ==
--- NOTE | 2025-03-27 13:50 | US_ITS ---
PROCEDURE: DIAG MAMM W/CAD, UNILAT; BREAST LIMITED UNILATERAL; LT BRST UNILAT SHARON ADD ON 03/27/2025 REASON FOR EXAM: 79-year-old female presents for follow-up for the left breast mass visualized on the examination of 03/18/2025. Family history of breast cancer in great maternal aunts. TECHNIQUE: Left diagnostic digital breast tomosynthesis with 2D and 3D images. Computer aided detection. Targeted left breast ultrasound. COMPARISON: 03/18/2025, 02/29/2024, 02/26/2023, 02/20/2022, 01/20/2021 FINDINGS: MAMMOGRAM: TISSUE DENSITY: The breasts are heterogeneously dense which may obscure small masses. Follow-up examination performed for the left breast mass visualized on the examination of 03/18/2025. On the present examination the mass in the upper-outer left breast at middle depth persist. This mass has not significantly changed when compared to multiple priors dating back to at least 2022. ULTRASOUND: Ultrasound was targeted to the left breast upper-outer. There is a cyst in the left breast at 2 o'clock 5 cm from the nipple measuring 0.9 x 0.9 x 0.7 cm. This is an appropriate correlate for the mammographic findings. US/Breast Limited Unilateral IMPRESSION: Left breast cyst is benign. Follow-up code: Routine Follow-up Reading Location: [facility]
--- NOTE | 2025-03-27 14:00 | BI_ITS ---
PROCEDURE: DIAG MAMM W/CAD, UNILAT; BREAST LIMITED UNILATERAL; LT BRST UNILAT SHARON ADD ON 03/27/2025 REASON FOR EXAM: 79-year-old female presents for follow-up for the left breast mass visualized on the examination of 03/18/2025. Family history of breast cancer in great maternal aunts. TECHNIQUE: Left diagnostic digital breast tomosynthesis with 2D and 3D images. Computer aided detection. Targeted left breast ultrasound. COMPARISON: 03/18/2025, 02/29/2024, 02/26/2023, 02/20/2022, 01/20/2021 FINDINGS: MAMMOGRAM: TISSUE DENSITY: The breasts are heterogeneously dense which may obscure small masses. Follow-up examination performed for the left breast mass visualized on the examination of 03/18/2025. On the present examination the mass in the upper-outer left breast at middle depth persist. This mass has not significantly changed when compared to multiple priors dating back to at least 2022. ULTRASOUND: Ultrasound was targeted to the left breast upper-outer. There is a cyst in the left breast at 2 o'clock 5 cm from the nipple measuring 0.9 x 0.9 x 0.7 cm. This is an appropriate correlate for the mammographic findings. BI/Lt Brst Unilat Sharon Add On IMPRESSION: Left breast cyst is benign. Follow-up code: Routine Follow-up Reading Location: [id number]
== END | disposition home or self-care (01) ==
PROVIDERS: PCP Nurse Practitioner Family; Referring Provider Nurse Practitioner Family; Visit Provider Nurse Practitioner Family
DX: R92.8 Other abnormal and inconclusive findings on diagnostic imaging of breast (principal)
CPT/HCPCS: 76642; 77061; 77065; G0279

== ENCOUNTER 2025-07-13 08:04 | Emergency (ER) | payer MEDICARE, SELFPAY ==
[2025-07-13 08:04] VITALS: BP 171/62; PULSE 79; RESP 18; TEMP 36.7; O2SAT 98; BMI 31.3
--- NOTE | 2025-07-13 08:08 | EX.ED.UPPERE ---
HPI History of Present Illness HPI Narrative: Patient presents with right wrist pain that has been constant for the past 2 days. Patient states she was walking up 2 steps when she lost her balance. Patient states her right arm hit the door frame. Patient did not fall. Patient is right-hand dominant. Patient describes her pain as aching but stabbing with palpation. Patient states it is better with oral analgesics. Patient denies any paresthesias or weakness. Patient denies any other injuries. Chief Complaint: Upper Extremity Injury Informant: patient Occured/Mechanism Mechanism/Context: Yes blunt trauma Onset/Context/Timing Onset: Days (2) Context: Sudden Onset Timing: Continuous Quality of Pain: Aching and Stabbing Location: Right wrist Worsened by: Palpation Relieved by: Oral analgesics Associated Symptoms Associated Symptoms: Negative for Parasthesia, Weakness or Loss of Funtion [facility] Medical History (Updated 07/13/25 @ 09:[address] Tyrese Davey, DO) Diabetes Thyroid cancer Breast cancer Pulmonary embolism DVT (deep venous thrombosis) Home Medications Medication Instructions Recorded Last Taken Type ascorbic acid (vitamin C) 500 mg 500 mg PO DAILY SUPPLEMENT 03/21/23 03/20/23 History tablet atorvastatin 40 mg tablet 40 mg PO DAILY CHOLESTEROL 03/21/23 03/20/23 History cholecalciferol (vitamin D3) 25 25 mcg PO DAILY SUPPLEMENT 03/21/23 03/20/23 History mcg (1,000 unit) tablet glimepiride 4 mg tablet 4 mg PO DAILY DM 03/21/23 03/20/23 History levothyroxine 125 mcg tablet 125 mcg PO DAILY THYROID 03/21/23 03/20/23 History (Synthroid) losartan 100 mg tablet 100 mg PO DAILY BP 03/21/23 03/20/23 History apixaban 5 mg tablet (Eliquis) 5 mg PO BID 08/20/23 Unknown History aspirin 81 mg tablet,delayed 81 mg PO DAILY 08/20/23 Unknown History release (Adult Aspirin Regimen) oxybutynin chloride 10 mg 10 mg PO DAILY 08/20/23 Unknown History tablet,extended release 24 hr albuterol sulfate 90 mcg/actuation 2 puff inhalation Q4-6H PRN 10/12/24 Unknown Rx aerosol inhaler shortness of breath or wheezing #6.7 grams exenatide microspheres 2 mg/0.85 mg subcut 10/12/24 Unknown History mL subcutaneous auto-injector ([employer] BCise) methylprednisolone 4 mg tablets in See Rx Instructions PO PER PKG DIR 10/12/24 Unknown Rx a dose pack (Medrol (Brendan)) #21 tabs mirabegron 50 mg tablet,extended 50 mg PO QDAY 10/12/24 Unknown History release 24 hr (Myrbetriq) mirtazapine 15 mg tablet 15 mg PO QDAY 10/12/24 Unknown History nitrofurantoin macrocrystal 100 mg 100 mg PO QHS 10/12/24 Unknown History capsule hydrocodone-acetaminophen 5-325mg 1 tab PO Q6H PRN PRN Pain 3 days 07/13/25 Unknown Rx 5mg-325mg #10 TABLETS Allergy/AdvReac Type Severity Reaction Status Date / Time azithromycin (From Zithromax) Allergy Swelling Verified 07/13/25 08:04 Family History Father Heart disease Surgical History (Updated 07/13/25 @ 08:[address] Tyrese Davey DO) Status post Mohs surgery H/O thyroidectomy H/O mastectomy Social History household members: spouse Smoking Status: Never smoker ROS ROS ED Constitutional Constitutional ED: Denies chills or fever(s) Eyes Eyes: Denies blurry vision or change in vision ENT ENT ED: Denies rhinorrhea or sore throat Cardiovascular Cardiovascular: Denies chest pain or palpitations Respiratory/Chest Respiratory/Chest: Denies cough or dyspnea Gastrointestinal Gastrointestinal: Denies nausea or vomiting Genitourinary Genitourinary ED: Denies dysuria or hematuria Musculoskeletal Musculoskeletal: Denies back pain or neck pain Integumentary Denies abscess or rash Neurologic Neurologic: Denies headache(s) or weakness Allergic/Immunologic Allergic/Immunologic ED: Denies mouth swelling or urticaria EXAM Physical Exam Const Vital Signs: 07/13/25 08:04 Temperature 98.1 F Temperature Source Oral Pulse Rate 79 Respiratory Rate 18 Blood Pressure 171/62 H Blood Pressure Mean 98 Pulse Ox 98 Oxygen Delivery Method Room Air Positive well nourished and well developed Constitutional Narrative: BMI is 31.3. General Appearance ED: well developed and NAD HEENT Reports moist mucous membranes Neck full ROM and supple Extremity Extremity Narrative: There is tenderness over the radial aspect of the right wrist. There is no obvious deformity noted. Range of motion was limited in all motions of the right wrist secondary to pain. Sensation was intact to light touch in the radial, median, and ulnar areas. Strength is 5/5 in the radial, median, and ulnar areas. Radial pulses are equal bilaterally. Capillary refill is less than 2 seconds in all digits. Neuro oriented x3, CN's II-XII intact bilaterally, moves all extremities, no focal motor deficits and no sensory deficits noted Sensorium / Orientation: alert Motor Exam: strength 5/5 throughout Psych mental status grossly normal MDM MDM MDM Narrative Medical decision making narrative: Differential diagnosis includes fracture, sprain, contusion. X-rays of the right wrist will be obtained to assess for fracture. History & Record Review Additional record(s) reviewed:: Prior outpatient record and Prior ED visit Radiography Diagnostic Testing: X-rays of the right wrist were obtained. There are 4 views. On my independent interpretation, there is no acute fracture. There are degenerative arthritis changes noted. Radiologist also interpreted the x-rays and agrees. Treatment and Re-Evaluation Narrative: Patient was advised of her findings. Patient was given a wrist splint. Patient was instructed to ice and elevate the right wrist. Patient was instructed to ice and elevate the right wrist. Patient was instructed to follow-up with her primary care physician in 5 to 7 days. Patient understood and was agreeable with the plan. All questions were answered. Discharge Plan Triage Chief Complaint: Upper Extremity Injury ED Provider: Tyrese Davey Dx/Rx/DC Orders Clinical Impression: Contusion of right wrist, initial encounter, Degenerative arthritis of right wrist Instructions: ED Osteoarthritis, ED Wrist Splint, ED Wrist Sprain Prescriptions: New hydrocodone-acetaminophen 5-325 mg tablet 1 tab PO Q6H PRN PRN (Reason: Pain) 3 Days Qty: 10 0RF No Action mirabegron [Myrbetriq] 50 mg tablet extended release 24 hr 50 mg PO QDAY [employer] BCise 2 mg/0.85 mL auto-injector subcut mirtazapine 15 mg tablet 15 mg PO QDAY nitrofurantoin macrocrystal 100 mg capsule 100 mg PO QHS Rx Instructions: must administer with a meal/food albuterol sulfate 90 mcg/actuation HFA aerosol inhaler 2 puff inhalation Q4-6H PRN (Reason: shortness of breath or wheezing) Qty: 6.7 0RF methylprednisolone [Medrol (Brendan)] 4 mg tablets,dose pack See Rx Instructions PO PER PKG DIR Qty: 21 0RF Rx Instructions: PO PER PKG DIR atorvastatin 40 mg tablet 40 mg PO DAILY ascorbic acid (vitamin C) 500 mg Tablet 500 mg PO DAILY levothyroxine [Synthroid] 125 mcg tablet 125 mcg PO DAILY glimepiride 4 mg tablet 4 mg PO DAILY losartan 100 mg tablet 100 mg PO DAILY cholecalciferol (vitamin D3) 25 mcg (1,000 unit) Tablet 25 mcg PO DAILY aspirin [Adult Aspirin Regimen] 81 mg tablet,delayed release (DR/EC) 81 mg PO DAILY oxybutynin chloride 10 mg tablet extended release 24hr 10 mg PO DAILY Eliquis 5 mg Tablet 5 mg PO BID Rx Instructions: Take 2 tablets twice daily for 5 more days then take 1 tablet twice daily Primary Care Provider: Sharri Ac Referrals: Sharri Ac, MARIELOS-C [Primary Care Provider, Internal Medicine] - 5-7 Days Print Language: Honduran Disposition Disposition: Home, Self Care
--- NOTE | 2025-07-13 08:27 | RAD_ITS ---
PROCEDURE: WRIST MIN 3 VIEWS 07/13/2025 REASON FOR EXAM: INJURY/PAIN TECHNIQUE: Procedure Code: RADWR Modality: DX Procedure: WRIST MIN 3 VIEWS Laterality: Right COMPARISON: None FINDINGS: Bones: Decreased bone mineralization. No fracture seen. Joints: Joint space narrowing, sclerosis and mild osteophyte formation at the lateral wrist between the distal pole scaphoid, trapezoid, trapezium. Minimal degenerative change distal radioulnar joint. Soft tissues: Atherosclerosis is present. Chondrocalcinosis of the triangular fibrocartilage. RAD/Wrist min 3 Views IMPRESSION: 1. Osteoarthritis lateral wrist. No fracture. 2. New atherosclerosis. 3. Chondrocalcinosis triangular fibrocartilage. This can be seen with CPPD. Reading Location: [id number]
[2025-07-13] MEDS: HYDROcodone Bitartrate/Apap 5/325 Tablet PO (09:11)
[2025-07-13 09:18] VITALS: BP 134/76; PULSE 66; RESP 18; TEMP 36.6; O2SAT 99
== END 2025-07-13 09:19 | disposition home or self-care (01) ==
PROVIDERS: Emergency Provider Emergency Medicine; PCP Nurse Practitioner Family; Visit Provider Emergency Medicine
DX: S60.211A Contusion of right wrist, initial encounter (principal); E11.9 Type 2 diabetes mellitus without complications; W22.09XA Striking against other stationary object, initial encounter; M19.031 Primary osteoarthritis, right wrist; Z79.84 Long term (current) use of oral hypoglycemic drugs
CPT/HCPCS: 73110; 99283